=== PATIENT | male | born 1980 | race Caucasian/White ===

== ENCOUNTER 2017-01-28 00:17 | Emergency (ER) | payer MEDICAID ==
[~2017-01-28] VITALS: Ht 180.3 cm; Wt 87.5 kg
[2017-01-28] MEDS ORDERED: ZIPRASIDONE 20 MG INJ IM ONE ×2 (01:15→01:30)
[2017-01-28 02:04] VITALS: BP 135/74
== END 2017-01-28 02:05 | disposition home or self-care (01) ==
LOC: ED 01:09
DX: F15.10 Other stimulant abuse, uncomplicated (principal); F41.9 Anxiety disorder, unspecified
CPT/HCPCS: 96372; 99283; J3486

== ENCOUNTER 2017-02-25 18:20 | Inpatient (IN) | payer MEDICAID ==
[~2017-02-25] VITALS: Ht 180.3 cm; Wt 83.0 kg
[2017-02-25] MEDS ORDERED: HYDROmorphone 2 MG/ML, 1ML ONE (18:44)
[2017-02-25 19:00] LABS: CULTURE INDICATED? YES; MICROSCOPIC INDICATED
[2017-02-25] MEDS ORDERED: HYDROmorphone 1 MG/ML, 1ML IM PRN (19:00)
[2017-02-25 19:32] LABS: MEAN CORPUSCULAR HEMOGLOBIN 32.7 pg (27.5-34.5); MEAN CORPUSCULAR HGB CONC 33.6 g/dL (33.2-36.2); MEAN CORPUSCULAR VOLUME 97.5 fL (81-97); MEAN PLATELET VOLUME 9.8 fL (7.4-10.4); PLATELET COUNT 246 x10^3/uL (130-400); RED BLOOD COUNT 4.51 x10^6/uL (4.38-5.82); RED CELL DISTRIBUTION WIDTH 13.7 % (9.4-14.8)
[2017-02-25 19:41] LABS: ANION GAP 6 mmol/L (5-15); CALCIUM 7.9 mg/dL (8.5-10.1); CHLORIDE 102 mmol/L (98-107); CREATININE 0.65 mg/dL (0.7-1.3)
[2017-02-25] MEDS ORDERED: SULFAMETH./TRIMETHOPRIM DS 800MG/160MG TABLET ONE (19:50)
[2017-02-25] MEDS ORDERED: SULFAMETH./TRIMETHOPRIM DS 800MG/160MG TABLET PO ONE (20:00)
[2017-02-25 20:14] LABS: MD YES
[2017-02-25 20:18] LABS: EOS#(MANUAL) 0.34 x10^3/uL (0.0-0.4); EOS% (MANUAL) 2 % (1-7); LYMPH#(MANUAL) 1.53 x10^3/uL (1-3.4); LYMPHS% (MANUAL) 9 % (22-44); MONOS#(MANUAL) 2.04 x10^3/uL (0.3-2.7); MONOS% (MANUAL) 12 % (2-9); REACTIVE LYMPHS # (MANUAL) 0.85 x10^3/uL (0-0); REACTIVE LYMPHS % (MANUAL) 5 % (0-0); SEG#(MANUAL) 12.24 x10^3/uL (1.8-6.8); SEGS% (MANUAL) 72 % (42-75)
[2017-02-25 20:19] LABS: <PLATELET ESTIMATE> ADEQUATE; <PLT MORPHOLOGY> NORMAL PLT MORPH; <RBC MORPHOLOGY> NORMAL
[2017-02-25 20:24] LABS: AMPHETAMINE SCREEN, URINE Positive (Negative); BARBITURATE SCREEN, URINE Negative (Negative); BENZODIAZEPINE SCREEN, URINE Negative (Negative); CANNABINOID SCREEN, URINE Negative (Negative); COCAINE SCREEN, URINE Negative (Negative); METHADONE SCREEN, URINE Negative (Negative); OPIATE SCREEN, URINE Negative (Negative)
[2017-02-25] MEDS ORDERED: CEFTRIAXONE PMX 1GM/50ML 50 ML IV SCH (20:30)
[2017-02-25] MEDS ORDERED: POLYETHYLENE GLYCOL 17 GM PACKET PO PRN (20:30)
[2017-02-25] MEDS ORDERED: ONDANSETRON 2MG/ML, 2ML IVPush PRN (20:30)
[2017-02-25] MEDS ORDERED: ACETAMINOPHEN 325 MG TABLET PO PRN (20:30)
[2017-02-25] MEDS ORDERED: BISACODYL 10 MG SUPP PR PRN (20:30)
[2017-02-25 21:28] LABS: FOLATE LEVEL 10.5 ng/mL (3.1-17.5)
[2017-02-25 22:09] VITALS: BP 99/50
[2017-02-25] MEDS: DOXYCYCLINE 100MG TABLET PO SCH (22:20)
[2017-02-25] MEDS: BEER 12 OZ CAN PO SCH (22:20)
[2017-02-25] MEDS: SODIUM CHLORIDE 0.9% 1,000 ML IV SCH (22:20)
[2017-02-25] MEDS: CEFTRIAXONE 1,000 MG in SODIUM CHLORIDE 0.9% 50 ML IV SCH (22:20)
[2017-02-25] MEDS: HEPARIN 5,000 UNITS/ML, 1ML SQ SCH (22:20)
[2017-02-26 04:16] VITALS: BP 113/71
[2017-02-26] MEDS: HEPARIN 5,000 UNITS/ML, 1ML SQ SCH ×3 (04:30→19:42)
[2017-02-26 05:33] LABS: MEAN CORPUSCULAR HEMOGLOBIN 32.7 pg (27.5-34.5); MEAN CORPUSCULAR HGB CONC 33.4 g/dL (33.2-36.2); MEAN CORPUSCULAR VOLUME 98.1 fL (81-97); MEAN PLATELET VOLUME 9.9 fL (7.4-10.4); PLATELET COUNT 224 x10^3/uL (130-400); RED BLOOD COUNT 4.38 x10^6/uL (4.38-5.82); RED CELL DISTRIBUTION WIDTH 13.8 % (9.4-14.8)
[2017-02-26 05:42] LABS: ALANINE AMINOTRANSFERASE 42 U/L (12-78); ALBUMIN 2.5 g/dL (3.4-5.0); ANION GAP 6 mmol/L (5-15); CALCIUM 7.4 mg/dL (8.5-10.1); CHLORIDE 106 mmol/L (98-107)
[2017-02-26 05:45] LABS: ALKALINE PHOSPHATASE 77 U/L (45-117); BILIRUBIN,TOTAL 0.3 mg/dL (0.2-1.0); TOTAL PROTEIN 6.4 g/dL (6.4-8.2)
[2017-02-26 06:13] LABS: MD YES
[2017-02-26 06:15] LABS: REACTIVE LYMPHS # (MANUAL) 0.29 x10^3/uL (0-0); REACTIVE LYMPHS % (MANUAL) 2 % (0-0)
[2017-02-26 06:16] LABS: EOS#(MANUAL) 0.14 x10^3/uL (0.0-0.4); EOS% (MANUAL) 1 % (1-7); LYMPH#(MANUAL) 3.58 x10^3/uL (1-3.4); LYMPHS% (MANUAL) 25 % (22-44); MONOS#(MANUAL) 0.72 x10^3/uL (0.3-2.7); MONOS% (MANUAL) 5 % (2-9); SEG#(MANUAL) 9.58 x10^3/uL (1.8-6.8); SEGS% (MANUAL) 67 % (42-75)
[2017-02-26 06:17] LABS: <PLATELET ESTIMATE> ADEQUATE; <PLT MORPHOLOGY> NORMAL PLT MORPH; <RBC MORPHOLOGY> NORMAL
[2017-02-26 08:01] VITALS: BP 117/61
[2017-02-26] MEDS: SENNA/DOCUSATE TABLET PO SCH (09:15)
[2017-02-26] MEDS: DOXYCYCLINE 100MG TABLET PO SCH ×2 (09:15→19:42)
[2017-02-26] MEDS: SODIUM CHLORIDE 0.9% 1,000 ML IV SCH ×2 (09:16→18:40)
[2017-02-26] MEDS: NICOTINE 21 MG/24 HR PATCH.TD24 TD SCH ×2 (09:17→20:27)
[2017-02-26] MEDS: BEER 12 OZ CAN PO SCH ×3 (09:17→19:42)
[2017-02-26 13:31] VITALS: BP 129/65
[2017-02-26 19:19] VITALS: BP 101/51
[2017-02-26] MEDS: KETOROLAC 30 MG/1 ML IVPush PRN (19:42)
[2017-02-26] MEDS: CEFTRIAXONE 1,000 MG in SODIUM CHLORIDE 0.9% 50 ML IV SCH (22:00)
[2017-02-27 03:21] VITALS: BP 119/78
[2017-02-27] MEDS: SODIUM CHLORIDE 0.9% 1,000 ML IV SCH ×2 (05:35→16:44)
[2017-02-27] MEDS: HEPARIN 5,000 UNITS/ML, 1ML SQ SCH ×3 (05:51→22:15)
[2017-02-27] MEDS: BEER 12 OZ CAN PO SCH ×2 (07:39→16:44)
[2017-02-27] MEDS: SENNA/DOCUSATE TABLET PO SCH (07:39)
[2017-02-27] MEDS: DOXYCYCLINE 100MG TABLET PO SCH ×2 (07:39→22:15)
[2017-02-27 08:23] VITALS: BP 120/80
[2017-02-27 13:12] VITALS: BP 119/73
[2017-02-27 19:44] VITALS: BP 125/73
[2017-02-27] MEDS: CEFTRIAXONE 1,000 MG in SODIUM CHLORIDE 0.9% 50 ML IV SCH (22:15)
[2017-02-27] MEDS: KETOROLAC 30 MG/1 ML IVPush PRN (22:26)
[2017-02-28 02:11] VITALS: BP 118/74
[2017-02-28] MEDS: SODIUM CHLORIDE 0.9% 1,000 ML IV SCH (03:00)
[2017-02-28] MEDS: NICOTINE 21 MG/24 HR PATCH.TD24 TD SCH (07:52)
[2017-02-28] MEDS: BEER 12 OZ CAN PO SCH (07:52)
[2017-02-28] MEDS: HEPARIN 5,000 UNITS/ML, 1ML SQ SCH (07:53)
[2017-02-28] MEDS ORDERED: DOXY100T PO (08:01)
[2017-02-28 08:30] VITALS: BP 119/76
[2017-02-28] MEDS: DOXYCYCLINE 100MG TABLET PO SCH (09:22)
[2017-02-28] MEDS: SENNA/DOCUSATE TABLET PO SCH (09:22)
[2017-02-28 09:45] VITALS: BP 116/72
== END 2017-02-28 10:15 | disposition home or self-care (01) | DRG 729 ==
LOC: ED 18:41 → EDIP 19:35 → 4NOR 21:33
PROVIDERS: ADMIT Internal Medicine; ATTEND Internal Medicine
DX: N43.3 Hydrocele, unspecified (principal); E44.0 Moderate protein-calorie malnutrition; N45.1 Epididymitis; D72.829 Elevated white blood cell count, unspecified; D75.89 Other specified diseases of blood and blood-forming organs; F12.90 Cannabis use, unspecified, uncomplicated; F15.90 Other stimulant use, unspecified, uncomplicated; F17.210 Nicotine dependence, cigarettes, uncomplicated; Z86.14 Personal history of Methicillin resistant Staphylococcus aureus infection; Z68.25 Body mass index [BMI] 25.0-25.9, adult
CPT/HCPCS: 36415; 76870; 80048; 80053; 80307; 81001; 82040; 82607; 82746; 83605; 85025; 87086; 87491; 87591; J0696; J1170; J1644; J1885; J7030

== ENCOUNTER 2017-03-02 21:17 | Emergency (ER) | payer MEDICAID ==
[~2017-03-02] VITALS: Ht 180.3 cm; Wt 81.3 kg
[~2017-03-02 21:17] MED LIST: DOXY100T PO
[2017-03-02 21:18] VITALS: BP 120/77
[2017-03-02 22:06] LABS: MICROSCOPIC INDICATED
[2017-03-02 22:08] LABS: CULTURE INDICATED? YES
== END 2017-03-02 23:09 | disposition left against medical advice (07) ==
LOC: ED 22:20
DX: N45.1 Epididymitis (principal); N50.812 Left testicular pain; F17.200 Nicotine dependence, unspecified, uncomplicated
CPT/HCPCS: 81001; 87086; 99284

== ENCOUNTER 2017-04-02 21:43 | Observation (INO) | payer MEDICAID ==
[~2017-04-02] VITALS: Ht 180.3 cm; Wt 81.2 kg
[2017-04-02 22:18] LABS: BASOPHILS % (AUTO) 2 % (0-1); EOSINOPHILS # (AUTO) 0.28 x10^3/uL (0-0.4); EOSINOPHILS % (AUTO) 4 % (1-7); LYMPHOCYTES # (AUTO) 2.69 x10^3/uL (1-3.4); LYMPHOCYTES % (AUTO) 42 % (22-44); MD NO; MEAN CORPUSCULAR HEMOGLOBIN 32.5 pg (27.5-34.5); MEAN CORPUSCULAR HGB CONC 33.6 g/dL (33.2-36.2); MEAN CORPUSCULAR VOLUME 96.6 fL (81-97); MONOCYTES # (AUTO) 0.88 x10^3/uL (0.2-0.8); MONOCYTES % (AUTO) 14 % (2-9); NEUTROPHILS # (AUTO) 2.51 x10^3/uL (1.8-6.8); NEUTROPHILS % (AUTO) 39 % (42-75); PLATELET COUNT 196 x10^3/uL (130-400); RED BLOOD COUNT 4.53 x10^6/uL (4.38-5.82); RED CELL DISTRIBUTION WIDTH 14.3 % (9.4-14.8)
[2017-04-02 22:27] LABS: ALBUMIN 3.8 g/dL (3.4-5.0); ANION GAP 6 mmol/L (5-15); CALCIUM 7.8 mg/dL (8.5-10.1); CHLORIDE 109 mmol/L (98-107)
[2017-04-02 22:30] LABS: ALANINE AMINOTRANSFERASE 95 U/L (12-78); ALKALINE PHOSPHATASE 83 U/L (45-117); BILIRUBIN,TOTAL 0.4 mg/dL (0.2-1.0); CREATININE 0.71 mg/dL (0.7-1.3)
[2017-04-02 22:35] LABS: ACETAMINOPHEN < 2 mcg/mL (10-30)
[2017-04-03 01:48] LABS: AMPHETAMINE SCREEN, URINE Positive (Negative); BARBITURATE SCREEN, URINE Negative (Negative); BENZODIAZEPINE SCREEN, URINE Negative (Negative); CANNABINOID SCREEN, URINE Negative (Negative); COCAINE SCREEN, URINE Negative (Negative); METHADONE SCREEN, URINE Negative (Negative); OPIATE SCREEN, URINE Negative (Negative)
[2017-04-03] MEDS ORDERED: NICOTINE 7 MG/24 HR PATCH.TD24 TD SCH (14:00)
[2017-04-03] MEDS ORDERED: ONDANSETRON ODT 4 MG PO PRN (14:00)
[2017-04-03] MEDS ORDERED: ACETAMINOPHEN 325 MG TABLET PO PRN (14:00)
[2017-04-03] MEDS ORDERED: DOCUSATE 100 MG CAPSULE PO PRN (14:00)
[2017-04-04 00:09] VITALS: BP 114/78
[2017-04-04 08:23] VITALS: BP 101/63
[2017-04-04] MEDS ORDERED: NICOTINE 7 MG/24 HR PATCH.TD24 TD SCH (14:00)
== END 2017-04-04 18:55 ==
LOC: ED 23:18 → EDIP 04-03 06:57 → 2N 04-04 00:08
PROVIDERS: ADMIT Internal Medicine; ATTEND Internal Medicine
DX: R45.851 Suicidal ideations (principal); F33.2 Major depressive disorder, recurrent severe without psychotic features; F15.10 Other stimulant abuse, uncomplicated; F10.20 Alcohol dependence, uncomplicated; F17.200 Nicotine dependence, unspecified, uncomplicated
CPT/HCPCS: 36415; 80053; 80307; 80329; 85025; 99285; G0378; G0480

== ENCOUNTER 2017-06-18 23:44 | Emergency (ER) | payer MEDICAID ==
[~2017-06-18] VITALS: Ht 172.7 cm; Wt 80.9 kg
[2017-06-19 00:38] LABS: BASOPHILS # (AUTO) 0.04 x10^3/uL (0-0.1); BASOPHILS % (AUTO) 1 % (0-1); EOSINOPHILS # (AUTO) 0.29 x10^3/uL (0-0.4); EOSINOPHILS % (AUTO) 4 % (1-7); LYMPHOCYTES # (AUTO) 3.08 x10^3/uL (1-3.4); LYMPHOCYTES % (AUTO) 40 % (22-44); MD NO; MEAN CORPUSCULAR HEMOGLOBIN 33.1 pg (27.5-34.5); MEAN CORPUSCULAR HGB CONC 33.9 g/dL (33.2-36.2); MEAN CORPUSCULAR VOLUME 97.6 fL (81-97); MEAN PLATELET VOLUME 9.6 fL (7.4-10.4); MONOCYTES # (AUTO) 0.69 x10^3/uL (0.2-0.8); MONOCYTES % (AUTO) 9 % (2-9); NEUTROPHILS # (AUTO) 3.62 x10^3/uL (1.8-6.8); NEUTROPHILS % (AUTO) 47 % (42-75); PLATELET COUNT 208 x10^3/uL (130-400); RED BLOOD COUNT 4.17 x10^6/uL (4.38-5.82); RED CELL DISTRIBUTION WIDTH 13.9 % (9.4-14.8)
[2017-06-19 00:49] LABS: AMPHETAMINE SCREEN, URINE Positive (Negative); BARBITURATE SCREEN, URINE Negative (Negative); BENZODIAZEPINE SCREEN, URINE Negative (Negative); CANNABINOID SCREEN, URINE Negative (Negative); COCAINE SCREEN, URINE Negative (Negative); METHADONE SCREEN, URINE Negative (Negative); OPIATE SCREEN, URINE Negative (Negative)
[2017-06-19 00:51] LABS: ALANINE AMINOTRANSFERASE 75 U/L (12-78); ALBUMIN 3.2 g/dL (3.4-5.0); ANION GAP 8 mmol/L (5-15); CALCIUM 7.9 mg/dL (8.5-10.1); CHLORIDE 113 mmol/L (98-107)
[2017-06-19 00:53] LABS: ACETAMINOPHEN < 2 mcg/mL (10-30); ALKALINE PHOSPHATASE 69 U/L (45-117); BILIRUBIN,TOTAL 0.4 mg/dL (0.2-1.0); SALICYLATE LEVEL < 1.7 mg/dL (2.8-20.0); TOTAL PROTEIN 6.9 g/dL (6.4-8.2)
[2017-06-19] MEDS ORDERED: NYSTATIN TOPICAL POWDER 15GM TP PRN (02:30)
[2017-06-19] MEDS ORDERED: ACETAMINOPHEN 325 MG TABLET PO PRN (05:30)
[2017-06-19] MEDS ORDERED: POTASSIUM CHLORIDE 20 MEQ TAB.ER.PRT PO SCH (08:00)
[2017-06-19] MEDS ORDERED: POTASSIUM CHLORIDE 20 MEQ TAB.ER.PRT ONE (08:20)
[2017-06-19] MEDS ORDERED: NYSTATIN TOPICAL POWDER 15GM TP SCH (09:00)
[2017-06-19 15:47] VITALS: BP 120/78
== END 2017-06-19 15:50 | disposition home or self-care (01) ==
LOC: ED 23:59 → UNDOADMOB 06-19 01:44 → EDIP 06-19 01:44 → ED 06-19 15:50
DX: R45.851 Suicidal ideations (principal); F15.10 Other stimulant abuse, uncomplicated; Z72.89 Other problems related to lifestyle; Z60.9 Problem related to social environment, unspecified; Z91.14 Patient's other noncompliance with medication regimen
CPT/HCPCS: 36415; 80053; 80307; 80329; 85025; 99284; G0480

== ENCOUNTER 2017-07-11 17:55 | Emergency (ER) | payer MEDICAID ==
[~2017-07-11] VITALS: Ht 180.3 cm; Wt 87.0 kg
[2017-07-11 18:49] LABS: BASOPHILS # (AUTO) 0.07 x10^3/uL (0-0.1); BASOPHILS % (AUTO) 1 % (0-1); EOSINOPHILS # (AUTO) 0.24 x10^3/uL (0-0.4); EOSINOPHILS % (AUTO) 3 % (1-7); LYMPHOCYTES # (AUTO) 2.63 x10^3/uL (1-3.4); LYMPHOCYTES % (AUTO) 34 % (22-44); MD NO; MEAN CORPUSCULAR HEMOGLOBIN 33.1 pg (27.5-34.5); MEAN CORPUSCULAR HGB CONC 33.6 g/dL (33.2-36.2); MEAN CORPUSCULAR VOLUME 98.7 fL (81-97); MEAN PLATELET VOLUME 9.4 fL (7.4-10.4); MONOCYTES # (AUTO) 0.47 x10^3/uL (0.2-0.8); MONOCYTES % (AUTO) 6 % (2-9); NEUTROPHILS # (AUTO) 4.26 x10^3/uL (1.8-6.8); NEUTROPHILS % (AUTO) 56 % (42-75); PLATELET COUNT 212 x10^3/uL (130-400); RED BLOOD COUNT 4.07 x10^6/uL (4.38-5.82); RED CELL DISTRIBUTION WIDTH 14.1 % (9.4-14.8)
[2017-07-11 18:57] LABS: ALANINE AMINOTRANSFERASE 53 U/L (12-78); ALBUMIN 3.2 g/dL (3.4-5.0); ANION GAP 8 mmol/L (5-15); CALCIUM 7.3 mg/dL (8.5-10.1); CHLORIDE 114 mmol/L (98-107); CREATININE 0.73 mg/dL (0.7-1.3); SALICYLATE LEVEL 1.8 mg/dL (2.8-20.0)
[2017-07-11 19:00] LABS: ALKALINE PHOSPHATASE 66 U/L (45-117); BILIRUBIN,TOTAL 0.2 mg/dL (0.2-1.0)
[2017-07-11 19:01] LABS: ACETAMINOPHEN < 2 mcg/mL (10-30)
[2017-07-11 19:30] LABS: AMPHETAMINE SCREEN, URINE Positive (Negative); BARBITURATE SCREEN, URINE Negative (Negative); BENZODIAZEPINE SCREEN, URINE Negative (Negative); CANNABINOID SCREEN, URINE Negative (Negative); COCAINE SCREEN, URINE Negative (Negative); METHADONE SCREEN, URINE Negative (Negative); OPIATE SCREEN, URINE Negative (Negative)
[2017-07-11 22:55] VITALS: BP 130/75
== END 2017-07-12 04:33 | disposition home or self-care (01) ==
LOC: ED 18:35
DX: R45.851 Suicidal ideations (principal); Z79.899 Other long term (current) drug therapy
CPT/HCPCS: 36415; 80053; 80307; 80329; 85025; 99284; G0480

== ENCOUNTER 2018-07-16 20:51 | Emergency (ER) | payer MEDICAID ==
[~2018-07-16] VITALS: Ht 180.3 cm; Wt 104.9 kg
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
[2018-07-16] MEDS ORDERED: THIAMINE 100MG TABLET ONE (21:28)
[2018-07-16] MEDS ORDERED: THIAMINE 100MG TABLET PO ONE (21:30)
[2018-07-16] MEDS ORDERED: LORazepam 1MG TABLET PO ONE (21:30)
[2018-07-16] MEDS ORDERED: LORazepam 1MG TABLET ONE (21:30)
[2018-07-16 21:47] LABS: BASOPHILS # (AUTO) 0.14 x10^3/uL (0-0.1); BASOPHILS % (AUTO) 2 % (0-1); EOSINOPHILS # (AUTO) 0.21 x10^3/uL (0-0.4); EOSINOPHILS % (AUTO) 3 % (1-7); LYMPHOCYTES # (AUTO) 2.23 x10^3/uL (1-3.4); LYMPHOCYTES % (AUTO) 26 % (22-44); MD NO; MEAN CORPUSCULAR HEMOGLOBIN 32.9 pg (27.5-34.5); MEAN CORPUSCULAR HGB CONC 32.4 g/dL (33.2-36.2); MEAN CORPUSCULAR VOLUME 101.7 fL (81-97); MEAN PLATELET VOLUME 11.5 fL (7.4-10.4); MONOCYTES # (AUTO) 1.14 x10^3/uL (0.2-0.8); MONOCYTES % (AUTO) 14 % (2-9); NEUTROPHILS # (AUTO) 4.74 x10^3/uL (1.8-6.8); NEUTROPHILS % (AUTO) 56 % (42-75); PLATELET COUNT 157 x10^3/uL (130-400); RED BLOOD COUNT 4.96 x10^6/uL (4.38-5.82); RED CELL DISTRIBUTION WIDTH 14.6 % (9.4-14.8)
[2018-07-16 22:00] LABS: ALBUMIN 3.8 g/dL (3.4-5.0); ANION GAP 11 mmol/L (5-15); CALCIUM 8.3 mg/dL (8.5-10.1); CHLORIDE 107 mmol/L (98-107); SALICYLATE LEVEL 1.9 mg/dL (2.8-20.0)
[2018-07-16 22:03] LABS: ALANINE AMINOTRANSFERASE 109 U/L (12-78); ALKALINE PHOSPHATASE 75 U/L (45-117); BILIRUBIN,TOTAL 1.1 mg/dL (0.2-1.0); CREATININE 1.06 mg/dL (0.7-1.3); TOTAL PROTEIN 8.1 g/dL (6.4-8.2)
--- NOTE | 2018-07-16 23:48 | NUR ---
BRIANNA RN: TELEPSYCH INITIATED; BOT PLACED IN ROOM
[2018-07-17 00:29] LABS: AMPHETAMINE SCREEN, URINE Positive (Negative); BARBITURATE SCREEN, URINE Negative (Negative); BENZODIAZEPINE SCREEN, URINE Positive (Negative); CANNABINOID SCREEN, URINE Negative (Negative); COCAINE SCREEN, URINE Negative (Negative); METHADONE SCREEN, URINE Negative (Negative); OPIATE SCREEN, URINE Negative (Negative)
--- NOTE | 2018-07-17 00:37 | NUR ---
PT RESTING QUIETLY, NAD. SITTER IN VIEW OF PT, ROOM REMAINS SECURE.
--- NOTE | 2018-07-17 02:10 | NUR ---
PT SLEEPING, RESP=UNLABORED. SITTER IN VIEW OF PT.
--- NOTE | 2018-07-17 02:33 | NUR ---
TELEPSYCH ON LINE WITH PT NOW.
--- NOTE | 2018-07-17 03:07 | NUR ---
SOC RECOMMENDS HOSPITALIZATION, WILL FAX RECOMMENDATION OVER. VS UPDATED.
--- NOTE | 2018-07-17 04:18 | NUR ---
ASSUMING CARE OF PT AT THIS TIME. PT IS RESTING IN [facility]. SITTER OUTSIDE OF ROOM FOR DIRECT OBSERVATION OF PT.
[2018-07-17] MEDS ORDERED: ONDANSETRON ODT 4 MG PO PRN (05:00)
[2018-07-17] MEDS ORDERED: DOCUSATE 100 MG CAPSULE PO PRN (05:00)
[2018-07-17] MEDS ORDERED: LORazepam 0.5MG TABLET PO PRN (05:00)
[2018-07-17] MEDS ORDERED: LORazepam 1MG TABLET PO PRN ×4 (05:00)
--- NOTE | 2018-07-17 05:15 | NUR ---
packet faxed to all facilities. pt declined from 2n as he has hx of mrsa stated from chart 17 years ago
--- NOTE | 2018-07-17 05:35 | NUR ---
PT ASLEEP IN [facility] AT THIS TIME; VIJAY. PT HAS SITTER OUTSIDE OF ROOM FOR DIRECT OBSERVATION OF PT.
[2018-07-17 05:55] LABS: FREE T4 (FREE THYROXINE) 1.29 ng/dL (0.76-1.46); THYROID STIMULATING HORMONE 2.27 mIU/L (0.358-3.740)
--- NOTE | 2018-07-17 06:17 | NUR ---
PT VSS AND UPDATED IN EMR. CIWA ASSESSMENT PERFORMED WITH PT AWAKE.
--- NOTE | 2018-07-17 07:03 | NUR ---
RECIEVED REPORT FROM ASHUTOSH RN. ASSUMED CARE OF PT
--- NOTE | 2018-07-17 07:37 | NUR ---
REPORT FROM KELBY BURNHAM. PT RESTING ON GURNEY. SITTER IN PLACE WITH EYES ON PT. RESP EVEN AND UNLABORED. ROOM SECURED.
--- NOTE | 2018-07-17 08:16 | NUR ---
PT PROVIDED WITH ED SECURITY DIET TRAY. PT IN NAD AT THIS TIME. SITTER IN PLACE WITH EYES ON PT.
--- NOTE | 2018-07-17 09:12 | NUR ---
PT RESTING ON GURJERE. VIJAY. SITTER IN PLACE. RESP EVEN AND UNLABORED.
--- NOTE | 2018-07-17 10:13 | NUR ---
PT RESTING IN BED. NO COMPLAINTS AT THIS TIME, SITTER IN VIEW OF PT.
--- NOTE | 2018-07-17 10:29 | NUR ---
PT RESTING ON GURNEY. RESP EVEN AND UNLABORED. NADN. SITTER IN PLACE.
[2018-07-17] MEDS ORDERED: QUETIAPINE 25MG TABLET ONE ×2 (10:35→22:12)
[2018-07-17] MEDS: QUETIAPINE 25MG TABLET PO SCH ×2 (11:10→22:14)
[2018-07-17] MEDS: MULTIVITAMINS/MINERALS TABLET PO SCH (11:10)
--- NOTE | 2018-07-17 11:23 | NUR ---
PT MEDICATED PER MAR, PT DENIES NEEDS AT THIS TIME. PT IN VIEW OF SITTER
--- NOTE | 2018-07-17 13:26 | NUR ---
PT TRANSFERED TO HOSPITAL BED FOR COMFORT. SUICIDE PRECAUTIONS REMAIN IN PLACE, WILL CTM, NO NEEDS AT THIS TIME
--- NOTE | 2018-07-17 14:30 | NUR ---
BREAK RN - PT RESTING ON GURJERE. RESP EVEN AND UNLABORED. SITTER IN PLACE.
--- NOTE | 2018-07-17 16:16 | NUR ---
PT RESTING IN BED, PROVIDED WITH WATER. NO C/O PAIN, NO OTHER NEEDS, SUICIDE PRECAUTIONS REMAIN IN PLACE
--- NOTE | 2018-07-17 18:03 | NUR ---
PT GIVEN FOOD TRAY, NAD, VSS, NO NEEDS AT THIS TIME
--- NOTE | 2018-07-17 19:02 | NUR ---
Pt report from Sharron white. This rn to assume care of pt. Sleeping comfortably on hospital bed. Nadn. Awaiting potential acceptance from psych facility.
--- NOTE | 2018-07-17 20:35 | NUR ---
Sleeping comfortably on hospital bed. Nadn. Awaiting potential acceptance from psych facility.
--- NOTE | 2018-07-17 21:40 | NUR ---
Given crackers and water per request. No other immediate needs.
--- NOTE | 2018-07-17 22:20 | NUR ---
Pt medicated per apr. Given water per request. No other immediate needs.
--- NOTE | 2018-07-17 23:01 | NUR ---
Sleeping comfortably on hospital bed.
--- NOTE | 2018-07-18 00:24 | NUR ---
LUNCH RN: PT RESTING IN ROOM. NO ACUTE DISTRES NOTED. SITTER AT DOOR. WILL CONTINUE TO MONITOR WHILE PRIMARY RN IS ON BREAK.
--- NOTE | 2018-07-18 01:01 | NUR ---
Sleeping comfortably on hospital bed.
--- NOTE | 2018-07-18 02:23 | NUR ---
Sleeping comfortably on hospital bed.
--- NOTE | 2018-07-18 03:10 | NUR ---
Sleeping comfortably on hospital bed.
--- NOTE | 2018-07-18 04:10 | NUR ---
Sleeping comfortably on hospital bed.
--- NOTE | 2018-07-18 05:25 | NUR ---
Sleeping comfortably on hospital bed.
--- NOTE | 2018-07-18 07:00 | NUR ---
REPORT RECEIVED, CARE ASSUMED.
--- NOTE | 2018-07-18 07:10 | NUR ---
PT IN SECURE ROOM WITH SITTER FOR OBSERVATION. PT SLEEPING AT THIS TIME.
--- NOTE | 2018-07-18 07:49 | NUR ---
MEDICATION REQUESTED FROM PHARMACY
--- NOTE | 2018-07-18 08:30 | NUR ---
PT SLEEPING IN SECURE ROOM. PT AROUSES EASILY. PT PROVIDED WITH PO FLUIDS AND BREAKFAST. NO OTHER NEEDS EXPRESSED AT THIS TIME.
[2018-07-18] MEDS ORDERED: QUETIAPINE 25MG TABLET ONE ×2 (09:32→19:47)
[2018-07-18] MEDS: MULTIVITAMINS/MINERALS TABLET PO SCH (09:33)
[2018-07-18] MEDS: QUETIAPINE 25MG TABLET PO SCH ×2 (09:34→21:21)
--- NOTE | 2018-07-18 09:35 | NUR ---
PT CONT SLEEPING INTERMITTENTLY, AROUSES EASILY. PT GIVEN AM MEDS ORDERED. PT COOPERATIVE WITH CARE. PO FLUIDS AT BEDSIDE. NO OTHER NEEDS EXPRESSED AT THIS TIME. PT CONT IN SECURE ROOM WITH Q 15 MIN CHECKS.
--- NOTE | 2018-07-18 10:02 | NUR ---
REPORT TO GENEVIEVE LAMA
--- NOTE | 2018-07-18 11:43 | NUR ---
pt in room at this time. room secure and sitter in hallway. lunch ordered and awaiting arrival.
--- NOTE | 2018-07-18 14:43 | NUR ---
PT RESTING IN ROOM. ROOM SECURE AND SITTER IN [place].
--- NOTE | 2018-07-18 19:40 | NUR ---
report from DILSHAD LAMA. PT RESTING CALMLY IN BED. SITTER ON FREQUENT WATCH. WILL CONTINUE TO MONITOR.
--- NOTE | 2018-07-18 20:03 | NUR ---
PT CONTINUES TO REST CALMLY IN BED WITH EYES CLOSED. NO STATED NEEDS AT THIS TIME. WILL CONTINUE TO MONITOR.
--- NOTE | 2018-07-18 21:25 | NUR ---
PT UP TO BR TO VOID. PT GAIT STEADY. PT MEDICATED WITH SCHEDULED MEDS. PT REQUESTING NICOTEIN PATCH. PT ROOM CLEARED OF DINNER DEBRIE.
[2018-07-18] MEDS ORDERED: NICOTINE 14MG/24 HR PATCH.TD24 TD SCH (22:00)
[2018-07-18] MEDS ORDERED: NICOTINE 14MG/24 HR PATCH.TD24 ONE (22:02)
--- NOTE | 2018-07-18 22:22 | NUR ---
PT GIVEN ORDERED NICOTINE PATCH. PT RESTING CALMLY IN BED AT THIS TIME. SITTER ON FREQUENT WATCH OF PT.
--- NOTE | 2018-07-18 23:40 | NUR ---
PT RESTING CALMLY IN BED WITH EYES CLOSED. NO STATED NEEDS AT THIS TIME.
--- NOTE | 2018-07-19 00:09 | NUR ---
PT RESTING CALMLY IN BED. NO STATED NEEDS, RESP EVEN AND NON LABORED. WILL CONTINUE TO MONITOR. SITTER ON FREQUENT WATCH.
--- NOTE | 2018-07-19 01:36 | NUR ---
PT RESTING CALMLY IN BED. NO STATED NEEDS, RESP EVEN AND NON LABORED. WILL CONTINUE TO MONITOR. SITTER ON FREQUENT WATCH.
--- NOTE | 2018-07-19 02:34 | NUR ---
PT RESTING CALMLY IN BED. NO STATED NEEDS, RESP EVEN AND NON LABORED. WILL CONTINUE TO MONITOR. SITTER ON FREQUENT WATCH.
--- NOTE | 2018-07-19 03:01 | NUR ---
PT RESTING CALMLY IN BED. NO STATED NEEDS, RESP EVEN AND NON LABORED. WILL CONTINUE TO MONITOR. SITTER ON FREQUENT WATCH.
--- NOTE | 2018-07-19 04:46 | NUR ---
PT RESTING CALMLY IN BED WITH EYES CLOSED. NO STATED NEEDS AT THIS TIME. SITTER ON FREQUENT WATCH OF PT. WILL CONTINUE TO MONITOR.
--- NOTE | 2018-07-19 05:12 | NUR ---
PT RESTING IN BED WITH EYES CLOSED. WILL CONTINUE TO MONITOR. SITTER AT DOOR FOR OBS.
--- NOTE | 2018-07-19 06:44 | NUR ---
PT RESTING IN BED WITH EYES CLOSED. WILL CONTINUE TO MONITOR. SITTER AT DOOR FOR OBS.
--- NOTE | 2018-07-19 07:52 | NUR ---
PT RESTING IN [facility], NAD, SITTER MONITORING FROM [facility] FOR SAFETY
[2018-07-19] MEDS ORDERED: QUETIAPINE 25MG TABLET ONE (08:34)
[2018-07-19] MEDS: QUETIAPINE 25MG TABLET PO SCH (08:37)
[2018-07-19 08:38] VITALS: BP 122/82
--- NOTE | 2018-07-19 08:47 | NUR ---
PT PROVIDED WITH MEAL TRAY, PT UP TO BATHROOM AND TOLERATES AMBULATION WELL. PT MEDICATED PER MAR. PT DENIES FURTHER NEEDS AT THIS TIME. SITTER MONITORING FROM [facility] FOR SAFETY
[2018-07-19] MEDS: MULTIVITAMINS/MINERALS TABLET PO SCH (10:09)
--- NOTE | 2018-07-19 10:12 | NUR ---
PT ATE APPROX 100% OF BREAKFAST, PROVIDED WITH REJI CRACKER AND WATER PER REQUEST. PT DENIES FURTHER NEEDS AT THIS TIME
--- NOTE | 2018-07-19 12:44 | NUR ---
pt provided with meal tray. denies further needs at this time
--- NOTE | 2018-07-19 16:39 | NUR ---
DR GAN TO BEDSIDE TO ASSESS AND DICUSS DC. AWAITING DC PAPERWORK AT THIS TIME
== END 2018-07-19 17:33 | disposition home or self-care (01) ==
LOC: ED 23:13 → EDIP 07-17 03:44 → UNDOADMIN 07-17 03:44 → ED 07-19 17:33
DX: F32.9 Major depressive disorder, single episode, unspecified (principal); R45.851 Suicidal ideations
CPT/HCPCS: 36415; 80053; 80307; 82306; 82607; 83735; 84439; 84443; 85025; 99284; 99285

== ENCOUNTER 2018-07-19 22:09 | Emergency (ER) | payer MEDICAID | END 2018-07-19 23:14 | LOC: ED 22:11 | DX: R45.851 Suicidal ideations (principal); Z53.21 Procedure and treatment not carried out due to patient leaving prior to being seen by health care provider ==

== ENCOUNTER 2018-08-20 03:43 | Emergency (ER) | payer MEDICAID ==
[~2018-08-20] VITALS: Ht 180.3 cm; Wt 102.1 kg
[2018-08-20 03:47] VITALS: BP 107/74
[2018-08-20] MEDS ORDERED: ACETAMINOPHEN 500 MG TABLET ONE (03:59)
[2018-08-20] MEDS ORDERED: ACETAMINOPHEN 500 MG TABLET PO ONE (04:00)
[2018-08-20] MEDS ORDERED: IBUPROFEN 600 MG TABLET ONE (04:00)
[2018-08-20] MEDS ORDERED: IBUPROFEN 600 MG TABLET PO ONE (04:00)
== END 2018-08-20 04:57 | disposition home or self-care (01) ==
LOC: ED 03:48
DX: M79.672 Pain in left foot (principal); F32.9 Major depressive disorder, single episode, unspecified; F17.200 Nicotine dependence, unspecified, uncomplicated; Z72.89 Other problems related to lifestyle
CPT/HCPCS: 99283

== ENCOUNTER 2018-08-20 20:09 | Emergency (ER) | payer MEDICAID ==
[~2018-08-20] VITALS: Ht 180.3 cm; Wt 101.8 kg
--- NOTE | 2018-08-20 21:19 | NUR ---
PATIENT MOVED INTO ROOM AND INSTRUCTED TO UNDRESS. ASSUMED PT CARE AT THIS TIME.
--- NOTE | 2018-08-20 21:20 | NUR ---
PT. WAS ON WALL IN ED FOR CLOSE OBS UNTIL ROOM WAS AVAILABLE. PT. MOVED INTO ED ROOM 2. ROOM IS SECURED. SITTER IN [place]. PT. AWARE OF NEED FOR UA. ALL BELONGINGS REMOVED AND SECURED IN LOCKER.
--- NOTE | 2018-08-20 21:23 | NUR ---
ERROR IN CLINICAL SCREEN DONE IN TRIAGE. CLINICAL SCREEN EDITTED
--- NOTE | 2018-08-20 21:35 | NUR ---
PATIENT ARRIVES TO THE ED TODAY C/O SUICIDAL IDEATION W/ INTENT TO OD ON HEROIN. STATES HE DRINKS ETOH DAILY, LAST AT 1500 TODAY. REPORTS RECENT HEROIN AND METH USE. DENIES OFFICIAL DIAGNOSES FOR PSYCHIATRIC DISORDERS, NO NORMAL MEDICAITONS. PT STATES HE "SELF MEDICATES." PT REPORTS NEW STRESSORS OF HOMELESSNESS, STATES "NO ONE LOVES ME" AND IS TEARFUL DURING ASSESSMENT. REPORTS ONE PREVIOUS ATTEMPT AT SI WITH PILLS.
[2018-08-20 21:47] LABS: AMPHETAMINE SCREEN, URINE Positive (Negative); BARBITURATE SCREEN, URINE Negative (Negative); BENZODIAZEPINE SCREEN, URINE Negative (Negative); CANNABINOID SCREEN, URINE Negative (Negative); COCAINE SCREEN, URINE Negative (Negative); OPIATE SCREEN, URINE Negative (Negative)
[2018-08-20 21:48] LABS: METHADONE SCREEN, URINE Negative (Negative)
[2018-08-20 22:07] LABS: ALANINE AMINOTRANSFERASE 115 U/L (12-78); ALBUMIN 3.5 g/dL (3.4-5.0); ANION GAP 9 mmol/L (5-15); CALCIUM 8.3 mg/dL (8.5-10.1); CHLORIDE 104 mmol/L (98-107); CREATININE 0.98 mg/dL (0.7-1.3)
[2018-08-20 22:09] LABS: ALKALINE PHOSPHATASE 76 U/L (45-117); BILIRUBIN,TOTAL 0.8 mg/dL (0.2-1.0); TOTAL PROTEIN 7.6 g/dL (6.4-8.2)
[2018-08-20 22:13] LABS: SALICYLATE LEVEL < 1.7 mg/dL (2.8-20.0)
[2018-08-20 22:18] LABS: MD YES; MEAN CORPUSCULAR HEMOGLOBIN 32.9 pg (27.5-34.5); MEAN CORPUSCULAR HGB CONC 33.2 g/dL (33.2-36.2); MEAN CORPUSCULAR VOLUME 99.2 fL (81-97); MEAN PLATELET VOLUME 10.8 fL (7.4-10.4); PLATELET COUNT 212 x10^3/uL (130-400); RED CELL DISTRIBUTION WIDTH 13.6 % (9.4-14.8)
[2018-08-20 22:22] LABS: <PLATELET ESTIMATE> ADEQUATE; ANISOCYTOSIS 1+; EOS#(MANUAL) 0.47 x10^3/uL (0.0-0.4); EOS% (MANUAL) 6 % (1-7); LYMPHS% (MANUAL) 24 % (22-44); MONOS#(MANUAL) 0.32 x10^3/uL (0.3-2.7); MONOS% (MANUAL) 4 % (2-9); SEG#(MANUAL) 5.21 x10^3/uL (1.8-6.8); SEGS% (MANUAL) 66 % (42-75)
[2018-08-20 22:23] LABS: LARGE PLATELETS 1+
--- NOTE | 2018-08-20 22:47 | NUR ---
TP RN- TELEPSYCH CONSULT INITIATED
--- NOTE | 2018-08-20 22:48 | NUR ---
BREATHALYZER DONE AND CHARTED. PT. TO HAVE TELEPSYCH EVAL AFTER FULL REGISTRATION COMPLETED. PT. REMAINS IN SECURED ROOM. SITTER IN [place]ILLAFA[place]. DENIES NEEDS.
--- NOTE | 2018-08-21 00:55 | NUR ---
GAVE REPORT TO TELEPSYCH MD AND MACHINE PLACED IN ROOM. PT AWAKE AND ADVISED ON POC.
[2018-08-21 01:20] VITALS: BP 100/62
--- NOTE | 2018-08-21 01:21 | NUR ---
PATIENT IS TEARFUL ON ASSESSMENT. STATES THE TELEPSYCH DOCTOR TOLD HIM HE WILL BE GOING HOME AND HE ISN'T HAPPY ABOUT THAT. VSS. DENIES NEEDS AT THIS TIME
--- NOTE | 2018-08-21 02:16 | NUR ---
PT RESTING IN BED W/ EVEN RESPIRATIONS Addendum: 08/21/18 at 0224 by ELIUD SIDE RAILS UP X 2 FOR SAFETY. SITTER REMAINS IN LINE OF SIGHT.
== END 2018-08-21 03:19 | disposition home or self-care (01) ==
LOC: ED 23:03
DX: F15.129 Other stimulant abuse with intoxication, unspecified (principal); F10.129 Alcohol abuse with intoxication, unspecified; F32.9 Major depressive disorder, single episode, unspecified; F17.200 Nicotine dependence, unspecified, uncomplicated; Z72.9 Problem related to lifestyle, unspecified; Y90.9 Presence of alcohol in blood, level not specified; Y92.89 Other specified places as the place of occurrence of the external cause
CPT/HCPCS: 36415; 80053; 80307; 85025; 93005; 99284

== ENCOUNTER 2018-08-21 17:47 | Inpatient (IN) | payer MEDICAID ==
[~2018-08-21] VITALS: Ht 180.3 cm; Wt 108.2 kg
[2018-08-21] MEDS ORDERED: DOCUSATE 100 MG CAPSULE PO PRN (18:30)
[2018-08-21] MEDS ORDERED: POLYETHYLENE GLYCOL 17 GM PACKET PO PRN (18:30)
[2018-08-21] MEDS ORDERED: BISACODYL 10 MG SUPP PR PRN (18:30)
[2018-08-21] MEDS ORDERED: ONDANSETRON ODT 4 MG PO PRN (18:30)
[2018-08-21] MEDS ORDERED: ACETAMINOPHEN 325 MG TABLET PO PRN (18:30)
[2018-08-21 21:23] VITALS: BP 120/87
[2018-08-21] MEDS ORDERED: PLEASE ENTER HEIGHT AND WEIGHT MC SCH (21:30)
[2018-08-21 21:45] VITALS: BP 120/87
[2018-08-21] MEDS: LORazepam 1MG TABLET PO PRN (21:51)
[2018-08-21] MEDS: DIVALPROEX 500 MG TABLET.DR PO SCH (21:51)
[2018-08-22 06:58] LABS: BASOPHILS # (AUTO) 0.04 x10^3/uL (0-0.1); BASOPHILS % (AUTO) 1 % (0-1); EOSINOPHILS # (AUTO) 0.32 x10^3/uL (0-0.4); EOSINOPHILS % (AUTO) 5 % (1-7); LYMPHOCYTES # (AUTO) 2.12 x10^3/uL (1-3.4); LYMPHOCYTES % (AUTO) 32 % (22-44); MD NO; MEAN CORPUSCULAR HEMOGLOBIN 33.5 pg (27.5-34.5); MEAN CORPUSCULAR HGB CONC 33.2 g/dL (33.2-36.2); MEAN CORPUSCULAR VOLUME 100.9 fL (81-97); MEAN PLATELET VOLUME 11.7 fL (7.4-10.4); MONOCYTES # (AUTO) 0.76 x10^3/uL (0.2-0.8); MONOCYTES % (AUTO) 11 % (2-9); NEUTROPHILS # (AUTO) 3.43 x10^3/uL (1.8-6.8); NEUTROPHILS % (AUTO) 51 % (42-75); PLATELET COUNT 175 x10^3/uL (130-400); RED BLOOD COUNT 4.69 x10^6/uL (4.38-5.82); RED CELL DISTRIBUTION WIDTH 13.7 % (9.4-14.8)
[2018-08-22 07:04] LABS: HCT (SEDRATE) 47.4 % (39.2-51.8)
[2018-08-22 07:07] LABS: ANION GAP 6 mmol/L (5-15); CHLORIDE 109 mmol/L (98-107); CHOLESTEROL, TOTAL 139 mg/dL (140-239)
[2018-08-22 07:18] VITALS: BP 109/68
[2018-08-22 07:33] LABS: HDL CHOL % 33 % (26-37); HDL CHOLESTEROL (DIRECT) 46 mg/dL (40-60); LDL CHOLESTEROL,CALCULATED 75 mg/dL (54-169); LDL/HDL RATIO 1.6 (0.5-3.0); TRIGLYCERIDES 92 mg/dL (50-200); VLDL CHOLESTEROL 18 mg/dL (0-25)
[2018-08-22] MEDS: DIVALPROEX 500 MG TABLET.DR PO SCH ×2 (09:29→20:29)
[2018-08-22] MEDS: NICOTINE 21 MG/24 HR PATCH.TD24 TD SCH (09:29)
[2018-08-22] MEDS: LACTULOSE 10 GM/15 ML UDC PO SCH ×2 (12:18→20:29)
[2018-08-22 17:19] LABS: MICROSCOPIC NOT IND
[2018-08-22 17:23] LABS: CULTURE INDICATED? NO
[2018-08-22 19:39] VITALS: BP 129/70
[2018-08-23 07:09] VITALS: BP 114/74
[2018-08-23] MEDS: DIVALPROEX 500 MG TABLET.DR PO SCH ×2 (09:16→20:08)
[2018-08-23] MEDS: NICOTINE 21 MG/24 HR PATCH.TD24 TD SCH (09:16)
[2018-08-23] MEDS: LACTULOSE 10 GM/15 ML UDC PO SCH ×2 (09:21→20:08)
[2018-08-23 19:31] VITALS: BP 123/81
[2018-08-23] MEDS: QUETIAPINE 100MG TABLET PO SCH (20:08)
[2018-08-24 07:21] VITALS: BP 120/75
[2018-08-24] MEDS: LACTULOSE 10 GM/15 ML UDC PO SCH (08:37)
[2018-08-24] MEDS: DIVALPROEX 500 MG TABLET.DR PO SCH ×2 (08:37→20:30)
[2018-08-24] MEDS: NICOTINE 21 MG/24 HR PATCH.TD24 TD SCH (08:37)
[2018-08-24 19:41] VITALS: BP 131/84
[2018-08-24] MEDS: LACTULOSE 20 GM/30 ML UDC PO SCH (20:30)
[2018-08-24] MEDS: QUETIAPINE 100MG TABLET PO SCH (20:30)
[2018-08-25 07:18] VITALS: BP 125/83
[2018-08-25] MEDS: LACTULOSE 20 GM/30 ML UDC PO SCH ×2 (08:34→20:46)
[2018-08-25] MEDS: NICOTINE 21 MG/24 HR PATCH.TD24 TD SCH (08:34)
[2018-08-25] MEDS: DIVALPROEX 500 MG TABLET.DR PO SCH ×2 (08:34→20:46)
[2018-08-25 19:31] VITALS: BP 113/74
[2018-08-25] MEDS: QUETIAPINE 100MG TABLET PO SCH (20:46)
[2018-08-26 07:26] VITALS: BP 116/79
[2018-08-26] MEDS: DIVALPROEX 500 MG TABLET.DR PO SCH ×2 (08:51→20:34)
[2018-08-26] MEDS: LACTULOSE 20 GM/30 ML UDC PO SCH ×2 (08:51→20:34)
[2018-08-26] MEDS: NICOTINE 21 MG/24 HR PATCH.TD24 TD SCH (08:52)
[2018-08-26 19:46] VITALS: BP 110/73
[2018-08-26] MEDS: QUETIAPINE 100MG TABLET PO SCH (20:34)
[2018-08-27 07:30] VITALS: BP 101/70
[2018-08-27] MEDS: DIVALPROEX 500 MG TABLET.DR PO SCH ×2 (08:13→21:04)
[2018-08-27] MEDS: LACTULOSE 20 GM/30 ML UDC PO SCH ×2 (08:13→21:00)
[2018-08-27] MEDS: NICOTINE 21 MG/24 HR PATCH.TD24 TD SCH (08:13)
[2018-08-27 19:47] VITALS: BP 113/71
[2018-08-27] MEDS: QUETIAPINE 100MG TABLET PO SCH (21:04)
[2018-08-28 07:51] VITALS: BP 104/72
[2018-08-28] MEDS: DIVALPROEX 500 MG TABLET.DR PO SCH ×2 (08:08→20:34)
[2018-08-28] MEDS: NICOTINE 21 MG/24 HR PATCH.TD24 TD SCH (08:08)
[2018-08-28] MEDS: BUPROPION SR 150 MG TABLET PO SCH (08:08)
[2018-08-28] MEDS: LACTULOSE 20 GM/30 ML UDC PO SCH ×2 (08:08→20:34)
[2018-08-28 19:41] VITALS: BP 104/69
[2018-08-28] MEDS: QUETIAPINE 100MG TABLET PO SCH (20:34)
[2018-08-29 07:28] VITALS: BP 114/72
[2018-08-29] MEDS: BUPROPION SR 150 MG TABLET PO SCH (08:29)
[2018-08-29] MEDS: NICOTINE 21 MG/24 HR PATCH.TD24 TD SCH (08:29)
[2018-08-29] MEDS: DIVALPROEX 500 MG TABLET.DR PO SCH ×2 (08:29→20:17)
[2018-08-29] MEDS: LACTULOSE 20 GM/30 ML UDC PO SCH ×2 (08:29→20:18)
[2018-08-29] MEDS ORDERED: CALCIUM CARBONATE 500 MG TAB.CHEW ONE (11:41)
[2018-08-29] MEDS ORDERED: CALCIUM CARBONATE 500 MG TAB.CHEW PO PRN (12:00)
[2018-08-29 19:33] VITALS: BP 114/76
[2018-08-29] MEDS: TRAZODONE 50MG TABLET PO SCH (20:17)
[2018-08-29] MEDS: ACAMPROSATE 333 MG TABLET.DR PO SCH (20:18)
[2018-08-29] MEDS: QUETIAPINE 100MG TABLET PO SCH (20:18)
[2018-08-30 07:43] VITALS: BP 104/70
[2018-08-30] MEDS: DIVALPROEX 500 MG TABLET.DR PO SCH ×2 (08:29→20:12)
[2018-08-30] MEDS: ACAMPROSATE 333 MG TABLET.DR PO SCH ×3 (08:29→20:12)
[2018-08-30] MEDS: LACTULOSE 20 GM/30 ML UDC PO SCH ×2 (08:29→20:12)
[2018-08-30] MEDS: BUPROPION SR 150 MG TABLET PO SCH (08:29)
[2018-08-30] MEDS: NICOTINE 21 MG/24 HR PATCH.TD24 TD SCH (08:30)
[2018-08-30 19:30] VITALS: BP 109/72
[2018-08-30] MEDS: TRAZODONE 50MG TABLET PO SCH (20:12)
[2018-08-30] MEDS: QUETIAPINE 100MG TABLET PO SCH (20:13)
[2018-08-31 07:26] VITALS: BP 106/65
[2018-08-31] MEDS: ACAMPROSATE 333 MG TABLET.DR PO SCH ×3 (08:47→20:26)
[2018-08-31] MEDS: BUPROPION SR 150 MG TABLET PO SCH (08:48)
[2018-08-31] MEDS: DIVALPROEX 500 MG TABLET.DR PO SCH ×2 (08:48→20:27)
[2018-08-31] MEDS: LACTULOSE 20 GM/30 ML UDC PO SCH ×2 (08:48→20:59)
[2018-08-31] MEDS: NICOTINE 21 MG/24 HR PATCH.TD24 TD SCH (09:03)
[2018-08-31 19:40] VITALS: BP 109/72
[2018-08-31] MEDS: QUETIAPINE 100MG TABLET PO SCH (20:26)
[2018-08-31] MEDS: TRAZODONE 50MG TABLET PO SCH (20:30)
[2018-09-01 08:05] VITALS: BP 110/72
[2018-09-01] MEDS: DIVALPROEX 500 MG TABLET.DR PO SCH ×2 (08:23→20:31)
[2018-09-01] MEDS: BUPROPION SR 150 MG TABLET PO SCH (08:23)
[2018-09-01] MEDS: ACAMPROSATE 333 MG TABLET.DR PO SCH ×3 (08:23→20:31)
[2018-09-01] MEDS: NICOTINE 21 MG/24 HR PATCH.TD24 TD SCH (08:23)
[2018-09-01] MEDS: LACTULOSE 20 GM/30 ML UDC PO SCH ×3 (09:00→20:43)
[2018-09-01] MEDS: LORazepam 1MG TABLET PO PRN (12:48)
[2018-09-01 19:47] VITALS: BP 113/78
[2018-09-01] MEDS: TRAZODONE 50MG TABLET PO SCH (20:31)
[2018-09-01] MEDS: QUETIAPINE 100MG TABLET PO SCH (20:31)
[2018-09-02 07:37] VITALS: BP 102/66
[2018-09-02] MEDS: DIVALPROEX 500 MG TABLET.DR PO SCH ×2 (08:52→20:45)
[2018-09-02] MEDS: ACAMPROSATE 333 MG TABLET.DR PO SCH ×3 (08:52→20:45)
[2018-09-02] MEDS: BUPROPION SR 150 MG TABLET PO SCH (08:53)
[2018-09-02] MEDS: LACTULOSE 20 GM/30 ML UDC PO SCH ×2 (09:00→20:48)
[2018-09-02] MEDS: NICOTINE 21 MG/24 HR PATCH.TD24 TD SCH (09:00)
[2018-09-02 19:45] VITALS: BP 112/80
[2018-09-02] MEDS: TRAZODONE 50MG TABLET PO SCH (20:45)
[2018-09-02] MEDS: QUETIAPINE 100MG TABLET PO SCH (20:46)
[2018-09-03 07:31] VITALS: BP 103/70
[2018-09-03] MEDS: LACTULOSE 20 GM/30 ML UDC PO SCH ×4 (09:00→20:55)
[2018-09-03] MEDS: ACAMPROSATE 333 MG TABLET.DR PO SCH ×3 (09:20→20:50)
[2018-09-03] MEDS: DIVALPROEX 500 MG TABLET.DR PO SCH ×2 (09:20→20:51)
[2018-09-03] MEDS: NICOTINE 21 MG/24 HR PATCH.TD24 TD SCH (09:21)
[2018-09-03] MEDS: BUPROPION SR 150 MG TABLET PO SCH (09:21)
[2018-09-03] MEDS ORDERED: NICO-487 TD (14:02)
[2018-09-03] MEDS ORDERED: BUPR150T73 PO (14:02)
[2018-09-03] MEDS ORDERED: TRAZ50TA66 PO (14:02)
[2018-09-03] MEDS ORDERED: DIVA-61 PO (14:02)
[2018-09-03] MEDS ORDERED: QUET100T PO (14:02)
[2018-09-03] MEDS ORDERED: ACAM333T7 PO (14:02)
[2018-09-03] MEDS: LORazepam 1MG TABLET PO PRN (15:06)
[2018-09-03 19:49] VITALS: BP 102/68
[2018-09-03] MEDS: QUETIAPINE 100MG TABLET PO SCH (20:51)
[2018-09-03] MEDS: TRAZODONE 50MG TABLET PO SCH (20:51)
[2018-09-04 07:42] VITALS: BP 104/68
[2018-09-04] MEDS: LACTULOSE 20 GM/30 ML UDC PO SCH (08:18)
[2018-09-04] MEDS: DIVALPROEX 500 MG TABLET.DR PO SCH (08:18)
[2018-09-04] MEDS: BUPROPION SR 150 MG TABLET PO SCH (08:18)
[2018-09-04] MEDS: ACAMPROSATE 333 MG TABLET.DR PO SCH (08:18)
[2018-09-04] MEDS: NICOTINE 21 MG/24 HR PATCH.TD24 TD SCH (08:19)
[2018-09-04] MEDS: LORazepam 1MG TABLET PO PRN (11:09)
== END 2018-09-04 11:50 | disposition home or self-care (01) | DRG 753 ==
LOC: 3E 20:58
PROVIDERS: ADMIT Psychiatry & Neurology Psychosomatic Medicine; ATTEND Psychiatry & Neurology Psychosomatic Medicine
DX: F31.30 Bipolar disorder, current episode depressed, mild or moderate severity, unspecified (principal); F15.20 Other stimulant dependence, uncomplicated; R45.851 Suicidal ideations; R56.9 Unspecified convulsions; B19.20 Unspecified viral hepatitis C without hepatic coma; D75.89 Other specified diseases of blood and blood-forming organs; F10.239 Alcohol dependence with withdrawal, unspecified; F11.21 Opioid dependence, in remission; G43.909 Migraine, unspecified, not intractable, without status migrainosus; G47.00 Insomnia, unspecified; F17.210 Nicotine dependence, cigarettes, uncomplicated; Z86.14 Personal history of Methicillin resistant Staphylococcus aureus infection
CPT/HCPCS: 36415; 71045; 80048; 80061; 80164; 81003; 82140; 82607; 84439; 84443; 85025; 85651; 86592; 87806; 93005; G0475

== ENCOUNTER 2019-07-08 13:08 | Emergency (ER) | payer MEDICAID ==
[~2019-07-08] VITALS: Ht 180.3 cm; Wt 86.4 kg
[~2019-07-08 13:08] MED LIST changes: +ACAM333T7 PO; +BUPR150T73 PO; +DIVA-61 PO; +NICO-487 TD; +QUET100T PO; +TRAZ50TA66 PO
--- NOTE | 2019-07-08 13:38 | NUR ---
DEXTERTER REQUEST MADE WITH NURSING OPS
--- NOTE | 2019-07-08 13:45 | NUR ---
LATE ENTRY FOR ARRIVAL 1330, PT +ETOH, BIB EMS, WAS FOUND LYING ON GROUND INFRONT OF 7-11 +ETOH, PT VERBALIZIED TO EMS THAT HE WANTED TOKILL HIMSELF. PT ARRIVES AMBULATORY AND UNCOOPERATIVE. PT HAS PITBULL DOG ON LEASH WITH HIM AND DOES NOT WANT TO LEAVE HIS DOG. AFTER REPEATED REASSURANCE THAT HIS DOG WOULD BE TAKEN CARE OF PT AMBULATED TO ROOM. HE PROVIDED A URINE SAMPLE AND REMOVED HIS CLOTHES AND PUT ON HOSPITAL GOWN. VSS, BA 0.284. PT REQIUIRING REPEATED REDIRECTION TO STAY IN [facility] AND REASSURANCES THAT HIS DOG IS "OK". DR KINGSTON TO BEDSIDE AND PT WAS VERBALLY ABUSSIVE AND NON-COOPERATIVE IN ANSWERING QUESTIONS. PT GOT OUT OF [facility] AFTER LEFT AND WANTED TO SEE HIS DOG. I REDIRECTED HIM AND GAVE REASSURANCE THAT HIS DOG WAS OK. CALL LIGHT W/I REACH AND INSTRUTED PT ON HOW TO USE IT TO WATCH TV. PT DECLINES TV AT THIS TIME. MEAL TRAY ORDERED. LABS SENT.
[2019-07-08 14:23] LABS: BASOPHILS # (AUTO) 0.08 x10^3/uL (0-0.1); BASOPHILS % (AUTO) 1 % (0-1); EOSINOPHILS # (AUTO) 0.08 x10^3/uL (0-0.4); EOSINOPHILS % (AUTO) 1 % (1-7); LYMPHOCYTES # (AUTO) 3.38 x10^3/uL (1-3.4); LYMPHOCYTES % (AUTO) 23 % (22-44); MD NO; MEAN CORPUSCULAR HEMOGLOBIN 32.3 pg (27.5-34.5); MEAN CORPUSCULAR HGB CONC 33.4 g/dL (33.2-36.2); MEAN CORPUSCULAR VOLUME 96.9 fL (81-97); MONOCYTES # (AUTO) 0.73 x10^3/uL (0.2-0.8); MONOCYTES % (AUTO) 5 % (2-9); NEUTROPHILS # (AUTO) 10.23 x10^3/uL (1.8-6.8); NEUTROPHILS % (AUTO) 71 % (42-75); PLATELET COUNT 218 x10^3/uL (130-400); RED BLOOD COUNT 4.89 x10^6/uL (4.38-5.82); RED CELL DISTRIBUTION WIDTH 13.9 % (9.4-14.8)
--- NOTE | 2019-07-08 14:27 | NUR ---
BAG SEWER: CHECKED ON DOG IN [place]. DOG SLEEPING. WATER PROVIDED
[2019-07-08 14:36] LABS: ALANINE AMINOTRANSFERASE 22 U/L (12-78); ALBUMIN 3.7 g/dL (3.4-5.0); ANION GAP 10 mmol/L (5-15); CALCIUM 8.1 mg/dL (8.5-10.1); CHLORIDE 109 mmol/L (98-107); CREATININE 0.84 mg/dL (0.7-1.3); SALICYLATE LEVEL 3.9 mg/dL (2.8-20.0)
[2019-07-08 14:46] LABS: ALKALINE PHOSPHATASE 61 U/L (45-117); BILIRUBIN,TOTAL 0.3 mg/dL (0.2-1.0); TOTAL PROTEIN 8.2 g/dL (6.4-8.2)
[2019-07-08 15:02] LABS: AMPHETAMINE SCREEN, URINE Negative (Negative); BARBITURATE SCREEN, URINE Negative (Negative); BENZODIAZEPINE SCREEN, URINE Negative (Negative); CANNABINOID SCREEN, URINE Negative (Negative); COCAINE SCREEN, URINE Negative (Negative); METHADONE SCREEN, URINE Negative (Negative); OPIATE SCREEN, URINE Negative (Negative)
--- NOTE | 2019-07-08 16:08 | NUR ---
PT HAS BEEN SLEEPING FOR THE PAST HOUR. NOW ARROUSES TO VERBAL STIMULATION. BA = 0.26. PT IS PLEASANT AND COOPERATIVE. SI MEAL TRAY PROVIDED AND PT SITTING UP AND EATING. NAD NOTED. INFORMED PT THAT I HAD JUST CHECKED ON HIS DOG "NORA" SHE IS IN THE [place] IN THE SHADE AT THE AMBULANCE BAY. SHE HAS WATER AND VOIDED PRIOR TO BEING PLACED IN THE [place]. SHE WAS LYING QUIETLY AND DID NOT APPEAR TO BE IN ANY DISTRESS. PT THANKED ME. SITTER REMAINS AT DOORWAY WITH PT IN VIEW AND ROOM IS SECURED.
--- NOTE | 2019-07-08 16:48 | NUR ---
DR KINGSTON SPOKE WITH PT. PT CALM AND COOPERATIVE. PT CONTINUES TO VERBALIZES FEELINGS OF SI. PT VERBALIZES UNDERSTANDING THAT HE WILL NEED TO BE SOBER BEFORE ANY FURTHER PSYCH EVAL CAN BE COMPLETED. SITTER REMAINS AT DOORWAY. PT ATE ONLY A FEW BITES OF HIS MEAL. PT REQUESTIONS TO SLEEP
--- NOTE | 2019-07-08 17:46 | NUR ---
I SPOKE WITH PT REGARDING HIS DOG AND EXPLAINED THAT IT WOULD NOT BE FAIR TO NORA FOR HER TO HAVE TO STAY CONFINED IN THE [place]. I EXPLEAINED THAT I WOULD BE CONTACTING [facility] AND THEY WILL GET NORA AND TAKE HER TO THE [facility] AND WILL CARE FOR HER WHILE HE IS IN THE HOSPITAL. ANIMAL CONTROL WILL KEEP THE ANIMAL FOR UP TO 5 DAYS WHICH WILL GIVE HIM TIME TO RECIEVE HIS TREATMENT AND IF IT IS GOING TO EXTEND BEYOND 5 DAYS WE CAN WORK ON MAKING FURTHER ARRAINGMENTS. PT VERBALIZED UNDERSTANDING AND COOPERATIVE WITH PLAN. I CONTACTED [facility] AT [phone], THEY WILL BE COMING TO SMALL ENGINE TRAINER NORA.
--- NOTE | 2019-07-08 19:39 | NUR ---
REPORT RECEIVED FROM HARVEY LAMA AND CARE ASSUMED OF PT AT THIS TIME. ANIMAL CONTROL CAME AND TOOK POSSESSION OF PT'S DOG, NORA. IMPOUND NUMBER [id number].
--- NOTE | 2019-07-08 19:40 | NUR ---
PT SLEEPING AT THIS TIME. SITTER OUTSIDE.
--- NOTE | 2019-07-08 20:15 | NUR ---
PT CONTINUES TO SLEEP. WILL ATTEMPT BREATHALYZER WHEN PT WAKES UP. SITTER OUTSIDE ROOM.
--- NOTE | 2019-07-08 20:40 | NUR ---
WOKE PT TO GET BREATHALIZER. 0.193 AT THIS TIME. VSS. PT CALM AND COOPERATIVE WITH STAFF. REPORTS SUICIDAL IDEATIONS WITH PLAN. REPORTS HE WOULD OVERDOSE ON PILLS. SITTER OUTSIDE ROOM.
--- NOTE | 2019-07-09 02:03 | NUR ---
BREATHALIZER 0.067 AT THIS TIME. PT REPORTS HE HAS SUICIDAL IDEATION WITH PLAN TO TAKE PILLS. REPORTS CURRENT LIFE STRESSORS. PT REMAINS CALM AND COOPERATIVE WITH STAFF. SLEEPING BETWEEN CARES. PROVIDER INFORMED.
--- NOTE | 2019-07-09 04:50 | NUR ---
PT CONTINUES TO SLEEP. SITTER OUTSIDE ROOM.
[2019-07-09] MEDS ORDERED: SERT50TA PO (06:14)
[2019-07-09] MEDS ORDERED: SERT100T PO (06:14)
--- NOTE | 2019-07-09 07:12 | NUR ---
REPORT GIVEN TO JUS LAMA
--- NOTE | 2019-07-09 07:16 | NUR ---
REPORT RECEIVED FROM ANNE MARIE LAMA. PT SLEEPING ON GURNEY W/ SITTER OUTSIDE ROOM AND GARAGE DOORS DOWN FOR SAFETY. CHEST RISE AND FALL OBSERVED.
[2019-07-09 08:26] VITALS: BP 123/80
--- NOTE | 2019-07-09 08:26 | NUR ---
ASSIST RN: PT RESTING CALMLY IN BED, NO STATED NEEDS AT THIS TIME. PT HAS BREAKFAST TRAY AT BEDSIDE. SITTER OUTSIDE ROOM FOR FREQUENT OBS. WILL CONTINUE TO MONITOR.
--- NOTE | 2019-07-09 08:58 | NUR ---
PER ANNE MARIE RN (NIGHTSHIFT NURSE) ANIMAL CONTROL CAME TO STORE HAND PTS DOG 07/07 AT 1930. COLLECTING OFFICER LYSSA AVELAR. PHONE NUMBER [phone]. VIOLATION # [id number]. PT AWARE.
--- NOTE | 2019-07-09 09:44 | NUR ---
PT SLEEPING ON GURNEY W/ SITTER OUTSIDE ROOM AND GARAGE DOORS DOWN FOR SAFETY. CHEST RISE AND FALL OBSERVED.
--- NOTE | 2019-07-09 10:37 | NUR ---
PT TRANSPORTED TO HOSPITAL BED. RESP EVEN AND UNLABORED, NADN. SITTER OUTSIDE ROOM, GARAGE DOORS DOWN FOR SAFETY.
--- NOTE | 2019-07-09 10:59 | NUR ---
PTS FATHER AMNA ALMAGUER CALLED TO CHECK ON STATUS OF PT. PER PT DOES NOT WANT TO GIVE UPDATE ON VISIT HOWEVER WOULD LIKE FATHER TO DRIVABILITY TECHNICIAN HIS DOG FROM [facility]. GAVE THIS RN PERMISSION TO SHARE INFORMATION REGARDINGS DOGS LOCATION.
--- NOTE | 2019-07-09 11:12 | NUR ---
[facility] EMERGENCY SAFEHOLD WAVIER AND RELEASE OF PERSONAL PROPERTY FORMS FAXED TO [phone] AND [phone].
--- NOTE | 2019-07-09 11:29 | NUR ---
ELIEL SOLIS IN ROOM FOR EVAL.
[2019-07-09] MEDS ORDERED: SERTRALINE 100MG TABLET PO ONE (12:00)
[2019-07-09] MEDS ORDERED: SERTRALINE 50MG TABLET ONE (12:06)
--- NOTE | 2019-07-09 13:12 | NUR ---
REPORT GIVEN TO DEBBIE LAMA. PT IS READY FOR TRANSPORT. [facility] WILL CALL BACK WHEN THEY ARE READY TO ACCEPT THE PT.
== END 2019-07-09 14:08 ==
LOC: ED 23:08
DX: R45.851 Suicidal ideations (principal)
CPT/HCPCS: 36415; 80053; 80307; 84443; 85025; 99285

== ENCOUNTER 2019-07-09 12:29 | Inpatient (IN) | payer MEDICAID ==
[~2019-07-09] VITALS: Ht 180.3 cm; Wt 109.0 kg
[~2019-07-09 12:29] MED LIST changes: +SERT100T PO; +SERT50TA PO
[2019-07-09] MEDS ORDERED: POLYETHYLENE GLYCOL 17 GM PACKET PO PRN (13:00)
[2019-07-09] MEDS ORDERED: ACETAMINOPHEN 325 MG TABLET PO PRN (13:00)
[2019-07-09] MEDS ORDERED: DOCUSATE 100 MG CAPSULE PO PRN (13:00)
[2019-07-09] MEDS ORDERED: BISACODYL 10 MG SUPP PR PRN (13:00)
[2019-07-09] MEDS ORDERED: PLEASE ENTER HEIGHT AND WEIGHT MC SCH (14:30)
[2019-07-09 15:20] VITALS: BP 137/94
[2019-07-09] MEDS: TOPIRAMATE 25 MG TABLET PO SCH ×2 (17:47→21:00)
[2019-07-09] MEDS: NICOTINE 14MG/24 HR PATCH.TD24 TD SCH (17:47)
[2019-07-09 18:08] LABS: MICROSCOPIC INDICATED
[2019-07-09 19:16] LABS: CHOL/HDL RATIO 3.6; LDL/HDL RATIO 1.9 (0.5-3.0)
[2019-07-09 19:33] VITALS: BP 133/82
[2019-07-10 07:24] VITALS: BP 139/90
[2019-07-10] MEDS: CEFDINIR 300 MG CAPSULE PO SCH ×2 (09:29→21:17)
[2019-07-10] MEDS: TOPIRAMATE 25 MG TABLET PO SCH ×2 (09:29→21:16)
[2019-07-10 15:33] LABS: ANION GAP 9 mmol/L (5-15); CALCIUM 7.9 mg/dL (8.5-10.1); CHLORIDE 105 mmol/L (98-107)
[2019-07-10 15:34] LABS: CREATININE 0.74 mg/dL (0.7-1.3)
[2019-07-10] MEDS: NICOTINE 14MG/24 HR PATCH.TD24 TD SCH (18:12)
[2019-07-10 19:54] VITALS: BP 134/84
[2019-07-11 07:00] VITALS: BP 131/90
[2019-07-11] MEDS: CEFDINIR 300 MG CAPSULE PO SCH ×2 (08:39→20:31)
[2019-07-11] MEDS: TOPIRAMATE 25 MG TABLET PO SCH ×2 (08:39→20:31)
[2019-07-11] MEDS: NICOTINE 14MG/24 HR PATCH.TD24 TD SCH (17:56)
[2019-07-11 19:30] VITALS: BP 111/73
[2019-07-12 07:54] VITALS: BP 99/64
[2019-07-12] MEDS: TOPIRAMATE 25 MG TABLET PO SCH ×2 (08:31→20:48)
[2019-07-12] MEDS: CEFDINIR 300 MG CAPSULE PO SCH ×2 (08:31→20:48)
[2019-07-12] MEDS ORDERED: NICO-486 TD (12:21)
[2019-07-12] MEDS ORDERED: QUET100T PO (12:21)
[2019-07-12] MEDS ORDERED: TOPI25TA32 PO (12:21)
[2019-07-12] MEDS ORDERED: SERT100T PO (12:21)
[2019-07-12] MEDS: NICOTINE 14MG/24 HR PATCH.TD24 TD SCH (12:33)
[2019-07-12 19:58] VITALS: BP 122/83
[2019-07-12] MEDS ORDERED: TRAZODONE 100MG TABLET PO ONE (23:00)
[2019-07-13 07:19] VITALS: BP 105/70
[2019-07-13] MEDS: TOPIRAMATE 25 MG TABLET PO SCH (08:15)
[2019-07-13] MEDS: CEFDINIR 300 MG CAPSULE PO SCH (08:15)
== END 2019-07-13 08:45 | disposition home or self-care (01) | DRG 753 ==
LOC: 3E 14:11
PROVIDERS: ADMIT Psychiatry & Neurology Psychosomatic Medicine; ATTEND Psychiatry & Neurology Psychosomatic Medicine
DX: F31.30 Bipolar disorder, current episode depressed, mild or moderate severity, unspecified (principal); R45.851 Suicidal ideations; B19.20 Unspecified viral hepatitis C without hepatic coma; F10.229 Alcohol dependence with intoxication, unspecified; F17.210 Nicotine dependence, cigarettes, uncomplicated; F41.9 Anxiety disorder, unspecified; N39.0 Urinary tract infection, site not specified; Z79.899 Other long term (current) drug therapy; Z71.6 Tobacco abuse counseling
CPT/HCPCS: 36415; 71045; 80048; 80053; 80061; 80307; 81001; 82140; 82607; 84443; 85025; 87086; 93005; 99285

== ENCOUNTER 2019-08-18 23:14 | Emergency (ER) | payer MEDICAID ==
[~2019-08-18] VITALS: Ht 180.3 cm; Wt 114.2 kg
[~2019-08-18 23:14] MED LIST changes: +NICO-486 TD; +TOPI25TA32 PO
--- NOTE | 2019-08-18 23:36 | NUR ---
PT AMBULATORY TO ROOM. PT'S BELONGINGS TO STORAGE LOCKER. DOORS IN ROOM DOWN. PT LAYING IN BED, WIPING AWAY TEARS. STATES "I'M SUICIDAL, MY LIFE SUCKS" REFUSES TO ANSWER ANY OTHER QUESTOINS. ERP TO BEDSIDE.
--- NOTE | 2019-08-19 00:31 | NUR ---
PT SLEEPING, RESPIRATIONS EVEN AND UNLABORED, CALL LIGHT IN REACH, BED RAILS UP.
--- NOTE | 2019-08-19 01:18 | NUR ---
PT REMAINS SLEEPING, RESPIRATIONS EVEN AND UNLABORED.
--- NOTE | 2019-08-19 02:13 | NUR ---
PT CONDITION REMAINS UNCHANGED.
--- NOTE | 2019-08-19 03:03 | NUR ---
PT SLEEPING, RESPIRATIONS EVEN AND UNLABORED.
[2019-08-19 04:23] LABS: BASOPHILS # (AUTO) 0.02 x10^3/uL (0-0.1); BASOPHILS % (AUTO) 0 % (0-1); EOSINOPHILS # (AUTO) 0.14 x10^3/uL (0-0.4); EOSINOPHILS % (AUTO) 2 % (1-7); LYMPHOCYTES # (AUTO) 2.84 x10^3/uL (1-3.4); LYMPHOCYTES % (AUTO) 31 % (22-44); MD NO; MEAN CORPUSCULAR HEMOGLOBIN 32.3 pg (27.5-34.5); MEAN CORPUSCULAR HGB CONC 33.6 g/dL (33.2-36.2); MEAN CORPUSCULAR VOLUME 96.2 fL (81-97); MEAN PLATELET VOLUME 10.6 fL (7.4-10.4); MONOCYTES % (AUTO) 7 % (2-9); NEUTROPHILS # (AUTO) 5.55 x10^3/uL (1.8-6.8); NEUTROPHILS % (AUTO) 61 % (42-75); PLATELET COUNT 175 x10^3/uL (130-400); RED BLOOD COUNT 4.55 x10^6/uL (4.38-5.82); RED CELL DISTRIBUTION WIDTH 14.7 % (9.4-14.8)
--- NOTE | 2019-08-19 04:26 | NUR ---
PT AWAKE, DENIED ANY REQUESTS.
[2019-08-19 04:31] LABS: ALANINE AMINOTRANSFERASE 25 U/L (12-78); ALBUMIN 3.6 g/dL (3.4-5.0); ANION GAP 7 mmol/L (5-15); CALCIUM 7.6 mg/dL (8.5-10.1); CHLORIDE 111 mmol/L (98-107); CREATININE 0.92 mg/dL (0.7-1.3); SALICYLATE LEVEL 3.9 mg/dL (2.8-20.0)
[2019-08-19 04:33] LABS: ALKALINE PHOSPHATASE 60 U/L (45-117); BILIRUBIN,TOTAL 0.4 mg/dL (0.2-1.0); TOTAL PROTEIN 7.5 g/dL (6.4-8.2)
--- NOTE | 2019-08-19 04:43 | NUR ---
PT SITTING UP TO DO CLEAN CATCH URINE.
[2019-08-19 05:10] LABS: AMPHETAMINE SCREEN, URINE Negative (Negative); BARBITURATE SCREEN, URINE Negative (Negative); BENZODIAZEPINE SCREEN, URINE Negative (Negative); CANNABINOID SCREEN, URINE Negative (Negative); COCAINE SCREEN, URINE Negative (Negative); METHADONE SCREEN, URINE Negative (Negative); OPIATE SCREEN, URINE Negative (Negative)
--- NOTE | 2019-08-19 07:00 | NUR ---
REPORT GIVEN TO KELBY NEUMANN AND KELBY DUFFY.
--- NOTE | 2019-08-19 07:01 | NUR ---
SBAR BEDSIDE HAND-OFF REPORT RECEIVED FROM KELBY SCHULTZ. ASSUMING CARE OF PATIENT.
[2019-08-19 12:25] VITALS: BP 114/64
--- NOTE | 2019-08-19 12:26 | NUR ---
SUICIDE RISK REASSESSMENT DONE. PT HAS A PLAN TO OVERDOSE ON SLEEPING PILLS. LUNCH TRAY SERVED BUT PATIENT REFUSED. VS UPDATED AND WNL. 2 GLASSES OF WATER GIVEN TO PATIENT.
--- NOTE | 2019-08-19 15:44 | NUR ---
REPORT RECEIVED FROM NEL LAMA. PT AMBULATED TO ROOM W/ A STEADY GAIT AT THIS TIME. PT IS SI W/ A PLAN TO OD ON SLEEPING PILLS. PT RESTING ON HOSPITAL BED W/ SITTER OUTSIDE ROOM AND GARAGE DOORS DOWN FOR SAFETY. BELONGINGS IN SAFE KEEPING. RESP EVEN AND UNLABORED, VIJAY.
--- NOTE | 2019-08-19 16:31 | NUR ---
REPORT GIVEN TO GINA. PT IS READY FOR TRANSPORT AT THIS TIME.
[2019-08-19] MEDS ORDERED: QUET100T4 PO (19:16)
== END 2019-08-19 16:51 ==
LOC: ED 08-19 00:44
DX: R45.851 Suicidal ideations (principal); F17.200 Nicotine dependence, unspecified, uncomplicated
CPT/HCPCS: 36415; 80053; 80307; 85025; 99285

== ENCOUNTER 2019-08-19 15:41 | Inpatient (IN) | payer MEDICAID ==
[~2019-08-19] VITALS: Ht 180.3 cm; Wt 111.4 kg
[2019-08-19 17:00] VITALS: BP 124/82
[2019-08-19] MEDS ORDERED: QUET100T4 PO (19:16)
[2019-08-19 19:21] VITALS: BP 100/60
[2019-08-19] MEDS: TOPIRAMATE 25 MG TABLET PO SCH (20:31)
[2019-08-19] MEDS: QUETIAPINE 100MG TABLET PO SCH (20:34)
[2019-08-20] MEDS ORDERED: POLYETHYLENE GLYCOL 17 GM PACKET NG PRN
[2019-08-20] MEDS ORDERED: ONDANSETRON 4 MG TABLET PO PRN
[2019-08-20] MEDS ORDERED: DOCUSATE 100 MG CAPSULE PO PRN
[2019-08-20 07:33] LABS: CALCIUM 8.4 mg/dL (8.5-10.1); CHLORIDE 109 mmol/L (98-107)
[2019-08-20 07:43] LABS: ALANINE AMINOTRANSFERASE 23 U/L (12-78); ALBUMIN 3.3 g/dL (3.4-5.0); ALKALINE PHOSPHATASE 62 U/L (45-117); ANION GAP 5 mmol/L (5-15); BILIRUBIN,TOTAL 0.7 mg/dL (0.2-1.0); CHOL/HDL RATIO 4.6; CHOLESTEROL, TOTAL 232 mg/dL (140-239); FREE T4 (FREE THYROXINE) 0.91 ng/dL (0.76-1.46); HDL CHOL % 22 % (26-37); HDL CHOLESTEROL (DIRECT) 50 mg/dL (40-60); LDL CHOLESTEROL,CALCULATED 141 mg/dL (54-169); LDL/HDL RATIO 2.8 (0.5-3.0); TOTAL PROTEIN 7.2 g/dL (6.4-8.2); TRIGLYCERIDES 205 mg/dL (50-200); VLDL CHOLESTEROL 41 mg/dL (0-25)
[2019-08-20 07:55] VITALS: BP 132/77
[2019-08-20] MEDS: TOPIRAMATE 25 MG TABLET PO SCH ×2 (09:16→20:24)
[2019-08-20] MEDS: SERTRALINE 100MG TABLET PO SCH (09:16)
[2019-08-20 19:39] VITALS: BP 121/75
[2019-08-20] MEDS: QUETIAPINE 100MG TABLET PO SCH (20:25)
[2019-08-21 07:25] VITALS: BP 104/66
[2019-08-21] MEDS: THIAMINE 100MG TABLET PO SCH (08:30)
[2019-08-21] MEDS: SERTRALINE 100MG TABLET PO SCH (08:30)
[2019-08-21] MEDS: NICOTINE 21 MG/24 HR PATCH.TD24 TD SCH (08:30)
[2019-08-21] MEDS: MULTIVITAMIN 1 TABLET PO SCH (08:30)
[2019-08-21] MEDS: TOPIRAMATE 25 MG TABLET PO SCH ×2 (08:30→20:10)
[2019-08-21 10:24] LABS: MICROSCOPIC INDICATED
[2019-08-21 19:59] VITALS: BP 115/72
[2019-08-21] MEDS: QUETIAPINE 100MG TABLET PO SCH (20:10)
[2019-08-22 07:37] VITALS: BP 127/78
[2019-08-22] MEDS: SERTRALINE 100MG TABLET PO SCH (08:40)
[2019-08-22] MEDS: THIAMINE 100MG TABLET PO SCH (08:40)
[2019-08-22] MEDS: MULTIVITAMIN 1 TABLET PO SCH (08:40)
[2019-08-22] MEDS: TOPIRAMATE 25 MG TABLET PO SCH ×2 (08:40→20:42)
[2019-08-22] MEDS: NICOTINE 21 MG/24 HR PATCH.TD24 TD SCH (08:41)
[2019-08-22 19:08] VITALS: BP 113/78
[2019-08-22] MEDS: QUETIAPINE 100MG TABLET PO SCH (20:42)
[2019-08-23 07:41] VITALS: BP 128/67
[2019-08-23] MEDS: SERTRALINE 100MG TABLET PO SCH (09:08)
[2019-08-23] MEDS: TOPIRAMATE 25 MG TABLET PO SCH ×2 (09:08→19:50)
[2019-08-23] MEDS: NICOTINE 21 MG/24 HR PATCH.TD24 TD SCH (09:08)
[2019-08-23] MEDS: MULTIVITAMIN 1 TABLET PO SCH (09:08)
[2019-08-23] MEDS: THIAMINE 100MG TABLET PO SCH (09:08)
[2019-08-23] MEDS: ACETAMINOPHEN 325 MG TABLET PO PRN (13:03)
[2019-08-23 19:50] VITALS: BP 122/77
[2019-08-23] MEDS: QUETIAPINE 100MG TABLET PO SCH (19:50)
[2019-08-24 07:36] VITALS: BP 107/82
[2019-08-24] MEDS: SERTRALINE 100MG TABLET PO SCH (08:16)
[2019-08-24] MEDS: THIAMINE 100MG TABLET PO SCH (08:17)
[2019-08-24] MEDS: MULTIVITAMIN 1 TABLET PO SCH (08:17)
[2019-08-24] MEDS: TOPIRAMATE 25 MG TABLET PO SCH ×2 (08:17→20:45)
[2019-08-24] MEDS: NICOTINE 21 MG/24 HR PATCH.TD24 TD SCH (08:17)
[2019-08-24] MEDS ORDERED: NICO-487 TD (09:22)
[2019-08-24] MEDS ORDERED: QUET100T PO (09:22)
[2019-08-24] MEDS ORDERED: TOPI25TA32 PO (09:22)
[2019-08-24] MEDS ORDERED: MULT-449 PO (09:22)
[2019-08-24] MEDS ORDERED: SERT100T32 PO (09:22)
[2019-08-24] MEDS: ACETAMINOPHEN 325 MG TABLET PO PRN ×2 (14:17→20:45)
[2019-08-24 20:05] VITALS: BP 106/73
[2019-08-24] MEDS: QUETIAPINE 100MG TABLET PO SCH (20:45)
[2019-08-25 07:18] VITALS: BP 104/70
[2019-08-25] MEDS: NICOTINE 21 MG/24 HR PATCH.TD24 TD SCH (08:14)
[2019-08-25] MEDS: TOPIRAMATE 25 MG TABLET PO SCH (08:15)
[2019-08-25] MEDS: MULTIVITAMIN 1 TABLET PO SCH (08:15)
[2019-08-25] MEDS: SERTRALINE 100MG TABLET PO SCH (08:15)
[2019-08-25] MEDS: THIAMINE 100MG TABLET PO SCH (08:15)
== END 2019-08-25 16:25 | disposition home or self-care (01) | DRG 753 ==
LOC: 3E 16:45
PROVIDERS: ADMIT Psychiatry & Neurology Psychosomatic Medicine; ATTEND Psychiatry & Neurology Psychosomatic Medicine
DX: F31.30 Bipolar disorder, current episode depressed, mild or moderate severity, unspecified (principal); B19.20 Unspecified viral hepatitis C without hepatic coma; E66.9 Obesity, unspecified; Z68.34 Body mass index [BMI] 34.0-34.9, adult; F10.20 Alcohol dependence, uncomplicated; F17.200 Nicotine dependence, unspecified, uncomplicated; F41.9 Anxiety disorder, unspecified; G47.00 Insomnia, unspecified; R45.851 Suicidal ideations; Y90.7 Blood alcohol level of 200-239 mg/100 ml; Z79.899 Other long term (current) drug therapy
CPT/HCPCS: 36415; 71045; 80053; 80061; 80307; 81001; 84439; 84443; 85025; 87086; 93005; 99285

== ENCOUNTER → 2019-10-19 | Emergency (ER) | payer MEDICAID ==
[~2019-10-19] VITALS: Ht 180.3 cm; Wt 107.1 kg
[~2019-10-19] MED LIST changes: +MULT-449 PO; +QUET100T4 PO; +SERT100T32 PO
--- NOTE | 2019-10-19 22:03 | NUR ---
FROM TRIAGE FOR SI, PT WITH DEPRESSION HX AND MULTIPLE ADMITS FOR SI REPORTS FEELING LIKE HE WANTS TO "KILL HIMSELF BY TAKING ALL MY PILLS" STATES HAS NOT TAKEN ANY TODAY. ALL BELONGINGS REMOVED CHANGED TO HOSPITAL GOWN, ROOM SECURE PER POLICY. X1 BAG OF UNSEARCHED BELONGINGS TO STORAGE/LOCK. AIDET PROVIDED. WILL CONTINUE TO MONITOR.
[2019-10-19 22:52] LABS: ALBUMIN 3.9 g/dL (3.4-5.0); CALCIUM 8.5 mg/dL (8.5-10.1); CREATININE 1.11 mg/dL (0.7-1.3)
[2019-10-19 22:56] LABS: MEAN CORPUSCULAR HEMOGLOBIN 32.6 pg (27.5-34.5); MEAN CORPUSCULAR VOLUME 98.7 fL (81-97); MEAN PLATELET VOLUME 11.8 fL (7.4-10.4); PLATELET COUNT 226 x10^3/uL (130-400); RED BLOOD COUNT 5.12 x10^6/uL (4.38-5.82); RED CELL DISTRIBUTION WIDTH 15.1 % (9.4-14.8)
--- NOTE | 2019-10-19 23:00 | NUR ---
URINE SAMPLE COLLECTED, PT REMAINS IN SAFE/PSYCH ROOM IN NAD, SAFETY CHECKS CURRENT, BLANKET PROVIDED. AWAITING TELE PSYCH CONSULT. WILL CONTINUE TO MONITOR.
[2019-10-19 23:09] LABS: BASOPHILS # (AUTO) 0.24 x10^3/uL (0-0.1); BASOPHILS % (AUTO) 2 % (0-1); EOSINOPHILS # (AUTO) 0.06 x10^3/uL (0-0.4); EOSINOPHILS % (AUTO) 1 % (1-7); LYMPHOCYTES # (AUTO) 3.57 x10^3/uL (1-3.4); LYMPHOCYTES % (AUTO) 30 % (22-44); MD MORPH REVIEW ONLY; MONOCYTES # (AUTO) 1.24 x10^3/uL (0.2-0.8); MONOCYTES % (AUTO) 10 % (2-9); NEUTROPHILS # (AUTO) 6.87 x10^3/uL (1.8-6.8); NEUTROPHILS % (AUTO) 57 % (42-75)
[2019-10-19 23:11] LABS: ANISOCYTOSIS 1+
[2019-10-19 23:13] LABS: <PLATELET ESTIMATE> ADEQUATE
[2019-10-19 23:14] LABS: LARGE PLATELETS 1+
[2019-10-19 23:19] LABS: ALANINE AMINOTRANSFERASE 40 U/L (12-78); ALKALINE PHOSPHATASE 86 U/L (45-117); ANION GAP 11 mmol/L (5-15); BILIRUBIN,TOTAL 0.8 mg/dL (0.2-1.0); CHLORIDE 104 mmol/L (98-107); TOTAL PROTEIN 8.3 g/dL (6.4-8.2)
[2019-10-19 23:57] LABS: AMPHETAMINE SCREEN, URINE Positive (Negative); BARBITURATE SCREEN, URINE Negative (Negative); BENZODIAZEPINE SCREEN, URINE Positive (Negative); CANNABINOID SCREEN, URINE Negative (Negative); COCAINE SCREEN, URINE Negative (Negative); METHADONE SCREEN, URINE Negative (Negative); OPIATE SCREEN, URINE Negative (Negative)
--- NOTE | 2019-10-20 | NUR ---
NO CHANGE IN ASSESSMENT, REMAINS CALM, COOPERATIVE. SNACKS PROVIDED, WATER. ROOM SAFETY CHECK COMPLETE.
--- NOTE | 2019-10-20 01:08 | NUR ---
NO CHANGE IN ASSESSMENT, SAFETY CHECK UPDATED. REMAINS CALM COOPERATIVE. AWAITING PSYCH EVAL. WILL CONTINUE TO MONITOR.
--- NOTE | 2019-10-20 02:06 | NUR ---
PT ON LEGAL HOLD, SAFETY UPDATED, SITTER OUTSIDE ROOM IN LINE OF SITE. SNACKS PROVIDED, WAITING FOR BEHAVIOR BED. AIDET PROVIDED. WILL CONTINUE TO MONITOR.
--- NOTE | 2019-10-20 03:39 | NUR ---
PT PLACED ON HOSPITAL BED, SLEEPING WITH RESPIRATONS EVEN AND UNLABORED, IN VIEW OF SITTER.
--- NOTE | 2019-10-20 05:57 | NUR ---
PT REMAINS SLEEPING.
--- NOTE | 2019-10-20 06:55 | NUR ---
MT: PSYCH PACKET SENT TO [facility], [facility], [facility], AND [facility].
--- NOTE | 2019-10-20 06:56 | NUR ---
REPORT GIVEN TO KELBY AHMMOND.
--- NOTE | 2019-10-20 07:06 | NUR ---
report received from jammie white.
--- NOTE | 2019-10-20 07:29 | NUR ---
diet tray ordered at this time.
--- NOTE | 2019-10-20 08:13 | NUR ---
diet tray provided at this time.
--- NOTE | 2019-10-20 09:00 | NUR ---
THROUGHT PUT: ALEYDA THOMAS AT [facility] WILL ACCEPT PT
[2019-10-20 09:10] VITALS: BP 118/63
--- NOTE | 2019-10-20 09:17 | NUR ---
report given to bubba white. all questions answered.
== END ==
LOC: ED 23:07
DX: R45.851 Suicidal ideations (principal); F32.9 Major depressive disorder, single episode, unspecified; F17.210 Nicotine dependence, cigarettes, uncomplicated; F15.10 Other stimulant abuse, uncomplicated; F10.10 Alcohol abuse, uncomplicated; Z72.9 Problem related to lifestyle, unspecified; Z86.19 Personal history of other infectious and parasitic diseases; Y90.0 Blood alcohol level of less than 20 mg/100 ml
CPT/HCPCS: 36415; 80053; 80307; 84443; 85025; 99283; 99284

== ENCOUNTER 2019-10-20 09:00 | Inpatient (IN) | payer MEDICAID ==
[~2019-10-20] VITALS: Ht 180.3 cm; Wt 105.0 kg
[2019-10-20 10:49] VITALS: BP 104/64
[2019-10-20] MEDS ORDERED: BISACODYL 10 MG SUPP PR PRN (11:00)
[2019-10-20] MEDS ORDERED: POLYETHYLENE GLYCOL 17 GM PACKET PO PRN (11:00)
[2019-10-20] MEDS ORDERED: ONDANSETRON ODT 4 MG PO PRN (11:00)
[2019-10-20] MEDS ORDERED: ACETAMINOPHEN 325 MG TABLET PO PRN (11:00)
[2019-10-20] MEDS ORDERED: DOCUSATE 100 MG CAPSULE PO PRN (11:00)
[2019-10-20] MEDS: SERTRALINE 100MG TABLET PO SCH (13:00)
[2019-10-20] MEDS: ACAMPROSATE 333 MG TABLET.DR PO SCH ×2 (16:35→20:56)
[2019-10-20] MEDS: LORazepam 1MG TABLET PO SCH ×2 (16:35→21:00)
[2019-10-20] MEDS: FOLIC ACID 1 MG TABLET PO SCH (16:35)
[2019-10-20] MEDS: NICOTINE 21 MG/24 HR PATCH.TD24 TD SCH (16:36)
[2019-10-20] MEDS: THIAMINE 100MG TABLET PO SCH (16:36)
[2019-10-20 19:50] VITALS: BP 132/83
[2019-10-20] MEDS: QUETIAPINE 100MG TABLET PO SCH (20:56)
[2019-10-21] MEDS: LORazepam 1MG TABLET PO SCH ×2 (03:54→08:25)
[2019-10-21 05:21] LABS: MICROSCOPIC INDICATED
[2019-10-21 07:00] VITALS: BP 122/77
[2019-10-21] MEDS: FOLIC ACID 1 MG TABLET PO SCH (08:25)
[2019-10-21] MEDS: SERTRALINE 100MG TABLET PO SCH (08:25)
[2019-10-21] MEDS: DISULFIRAM 250 MG TABLET PO SCH (08:25)
[2019-10-21] MEDS: THIAMINE 100MG TABLET PO SCH (08:25)
[2019-10-21] MEDS: ACAMPROSATE 333 MG TABLET.DR PO SCH ×3 (08:26→19:30)
[2019-10-21 09:40] LABS: CHOL/HDL RATIO 3.6; FREE T4 (FREE THYROXINE) 1.05 ng/dL (0.76-1.46); LDL/HDL RATIO 1.9 (0.5-3.0)
[2019-10-21 15:03] VITALS: BP 115/77
[2019-10-21] MEDS: NICOTINE 21 MG/24 HR PATCH.TD24 TD SCH (15:59)
[2019-10-21] MEDS: LORazepam 1MG TABLET PO PRN ×2 (16:00→19:30)
[2019-10-21] MEDS: QUETIAPINE 100MG TABLET PO SCH (19:30)
[2019-10-21 19:35] VITALS: BP 102/68
[2019-10-22 07:28] VITALS: BP 108/70
[2019-10-22] MEDS: DISULFIRAM 250 MG TABLET PO SCH (08:32)
[2019-10-22] MEDS: ACAMPROSATE 333 MG TABLET.DR PO SCH ×3 (08:32→19:58)
[2019-10-22] MEDS: LORazepam 1MG TABLET PO PRN ×2 (08:33→19:59)
[2019-10-22] MEDS: FOLIC ACID 1 MG TABLET PO SCH (08:33)
[2019-10-22] MEDS: SERTRALINE 100MG TABLET PO SCH (08:33)
[2019-10-22] MEDS: THIAMINE 100MG TABLET PO SCH (08:33)
[2019-10-22] MEDS: NICOTINE 21 MG/24 HR PATCH.TD24 TD SCH (13:15)
[2019-10-22 19:49] VITALS: BP 114/86
[2019-10-22] MEDS: QUETIAPINE 100MG TABLET PO SCH (19:59)
[2019-10-23 06:59] VITALS: BP 103/67
[2019-10-23] MEDS: FOLIC ACID 1 MG TABLET PO SCH (08:43)
[2019-10-23] MEDS: THIAMINE 100MG TABLET PO SCH (08:43)
[2019-10-23] MEDS: SERTRALINE 100MG TABLET PO SCH (08:43)
[2019-10-23] MEDS: DISULFIRAM 250 MG TABLET PO SCH (08:43)
[2019-10-23] MEDS: LORazepam 1MG TABLET PO PRN ×2 (08:43→20:49)
[2019-10-23] MEDS: ACAMPROSATE 333 MG TABLET.DR PO SCH ×3 (08:44→20:49)
[2019-10-23] MEDS: NICOTINE 21 MG/24 HR PATCH.TD24 TD SCH (13:15)
[2019-10-23 19:07] VITALS: BP 120/85
[2019-10-23] MEDS: QUETIAPINE 100MG TABLET PO SCH (20:49)
[2019-10-24 07:15] VITALS: BP 131/86
[2019-10-24] MEDS: FOLIC ACID 1 MG TABLET PO SCH (08:24)
[2019-10-24] MEDS: ACAMPROSATE 333 MG TABLET.DR PO SCH (08:24)
[2019-10-24] MEDS: THIAMINE 100MG TABLET PO SCH (08:24)
[2019-10-24] MEDS: DISULFIRAM 250 MG TABLET PO SCH (08:24)
[2019-10-24] MEDS: SERTRALINE 100MG TABLET PO SCH (08:24)
[2019-10-24] MEDS ORDERED: DISU250T2 PO (09:11)
[2019-10-24] MEDS ORDERED: SERT100T32 PO (09:11)
[2019-10-24] MEDS ORDERED: NICO-487 TD (09:11)
[2019-10-24] MEDS ORDERED: QUET100T PO (09:11)
[2019-10-24] MEDS ORDERED: ACAM333T7 PO (09:11)
== END 2019-10-24 09:30 | disposition home or self-care (01) | DRG 753 ==
LOC: 3E 09:00
PROVIDERS: ADMIT Psychiatry & Neurology Psychosomatic Medicine; ATTEND Psychiatry & Neurology Psychosomatic Medicine
DX: F31.30 Bipolar disorder, current episode depressed, mild or moderate severity, unspecified (principal); F17.210 Nicotine dependence, cigarettes, uncomplicated; R45.851 Suicidal ideations; E66.9 Obesity, unspecified; B19.20 Unspecified viral hepatitis C without hepatic coma; F10.21 Alcohol dependence, in remission; F15.20 Other stimulant dependence, uncomplicated; Y90.4 Blood alcohol level of 80-99 mg/100 ml; Z79.899 Other long term (current) drug therapy; Z68.32 Body mass index [BMI] 32.0-32.9, adult
CPT/HCPCS: 36415; 80061; 81001; 82140; 84439; 84443; 87086; 93005

== ENCOUNTER 2019-11-19 22:17 | Emergency (ER) | payer MEDICAID ==
[~2019-11-19] VITALS: Ht 180.3 cm; Wt 108.8 kg
[~2019-11-19 22:17] MED LIST changes: +DISU250T2 PO
[2019-11-19 23:06] LABS: BASOPHILS % (AUTO) 1 % (0-1); EOSINOPHILS % (AUTO) 1 % (1-7); LYMPHOCYTES % (AUTO) 14 % (22-44); MEAN CORPUSCULAR HEMOGLOBIN 32.6 pg (27.5-34.5); MEAN PLATELET VOLUME 10.6 fL (7.4-10.4); MONOCYTES % (AUTO) 10 % (2-9); NEUTROPHILS % (AUTO) 75 % (42-75); PLATELET COUNT 174 x10^3/uL (130-400); RED BLOOD COUNT 4.78 x10^6/uL (4.38-5.82); RED CELL DISTRIBUTION WIDTH 15.2 % (9.4-14.8)
[2019-11-19 23:07] LABS: MD NO
[2019-11-19 23:38] LABS: ALANINE AMINOTRANSFERASE 20 U/L (12-78); ALBUMIN 3.1 g/dL (3.4-5.0); ANION GAP 6 mmol/L (5-15); CALCIUM 7.8 mg/dL (8.5-10.1); CHLORIDE 106 mmol/L (98-107); CREATININE 0.78 mg/dL (0.7-1.3); SALICYLATE LEVEL 2.9 mg/dL (2.8-20.0)
[2019-11-19 23:41] LABS: ALKALINE PHOSPHATASE 74 U/L (45-117); BILIRUBIN,TOTAL 0.4 mg/dL (0.2-1.0); TOTAL PROTEIN 7.1 g/dL (6.4-8.2)
[2019-11-20 01:46] LABS: AMPHETAMINE SCREEN, URINE Positive (Negative); BARBITURATE SCREEN, URINE Negative (Negative); BENZODIAZEPINE SCREEN, URINE Positive (Negative); CANNABINOID SCREEN, URINE Negative (Negative); COCAINE SCREEN, URINE Negative (Negative); METHADONE SCREEN, URINE Negative (Negative); OPIATE SCREEN, URINE Negative (Negative)
--- NOTE | 2019-11-20 02:09 | NUR ---
[facility] accepts. Accepting doctor is Dr. Singer. [address].
[2019-11-20 03:08] VITALS: BP 115/70
--- NOTE | 2019-11-20 03:23 | NUR ---
Report given to KELBY Morton at [address] [place] [address].
== END 2019-11-20 04:00 ==
LOC: ED 22:38
DX: R45.851 Suicidal ideations (principal); F32.9 Major depressive disorder, single episode, unspecified; F17.200 Nicotine dependence, unspecified, uncomplicated
CPT/HCPCS: 36415; 80053; 80307; 85025; 99285

== ENCOUNTER 2019-11-20 02:35 | Inpatient (IN) | payer MEDICAID ==
[~2019-11-20] VITALS: Ht 180.3 cm; Wt 104.4 kg
[2019-11-20] MEDS ORDERED: ONDANSETRON ODT 4 MG PO PRN (03:00)
[2019-11-20] MEDS ORDERED: ACETAMINOPHEN 325 MG TABLET PO PRN (03:00)
[2019-11-20] MEDS ORDERED: BISACODYL 10 MG SUPP PR PRN (03:00)
[2019-11-20] MEDS ORDERED: DOCUSATE 100 MG CAPSULE PO PRN (03:00)
[2019-11-20] MEDS ORDERED: POLYETHYLENE GLYCOL 17 GM PACKET PO PRN (03:00)
[2019-11-20] MEDS ORDERED: NICOTINE 21 MG/24 HR PATCH.TD24 TD SCH (03:00)
[2019-11-20] MEDS ORDERED: LORazepam 0.5MG TABLET PO PRN (03:30)
[2019-11-20 04:13] VITALS: BP 115/70
[2019-11-20] MEDS ORDERED: PLEASE ENTER HEIGHT AND WEIGHT MC SCH (04:30)
[2019-11-20 04:44] VITALS: BP 115/70
[2019-11-20 05:34] LABS: MICROSCOPIC NOT IND
[2019-11-20 06:46] LABS: FREE T4 (FREE THYROXINE) 1.09 ng/dL (0.76-1.46)
[2019-11-20 07:26] VITALS: BP 121/70
[2019-11-20] MEDS: SERTRALINE 100MG TABLET PO SCH (08:23)
[2019-11-20] MEDS: DISULFIRAM 250 MG TABLET PO SCH (08:23)
[2019-11-20] MEDS: ACAMPROSATE 333 MG TABLET.DR PO SCH ×3 (08:23→21:12)
[2019-11-20] MEDS: NICOTINE 21 MG/24 HR PATCH.TD24 TD SCH (08:24)
[2019-11-20] MEDS: TOPIRAMATE 25 MG TABLET PO SCH ×2 (08:24→17:04)
[2019-11-20 18:53] VITALS: BP 131/78
[2019-11-20] MEDS: QUETIAPINE 100MG TABLET PO SCH (21:12)
[2019-11-21 07:21] VITALS: BP 107/67
[2019-11-21] MEDS: ACAMPROSATE 333 MG TABLET.DR PO SCH ×3 (07:54→19:50)
[2019-11-21] MEDS: NICOTINE 21 MG/24 HR PATCH.TD24 TD SCH (07:55)
[2019-11-21] MEDS: SERTRALINE 100MG TABLET PO SCH (07:55)
[2019-11-21] MEDS: TOPIRAMATE 25 MG TABLET PO SCH ×2 (07:55→16:02)
[2019-11-21] MEDS: DISULFIRAM 250 MG TABLET PO SCH (07:55)
[2019-11-21 19:08] VITALS: BP 131/85
[2019-11-21] MEDS: QUETIAPINE 100MG TABLET PO SCH (19:51)
[2019-11-22 07:00] VITALS: BP 131/87
[2019-11-22] MEDS: ACAMPROSATE 333 MG TABLET.DR PO SCH ×3 (08:27→20:21)
[2019-11-22] MEDS: TOPIRAMATE 25 MG TABLET PO SCH ×2 (08:27→16:13)
[2019-11-22] MEDS: DISULFIRAM 250 MG TABLET PO SCH (08:27)
[2019-11-22] MEDS: NICOTINE 21 MG/24 HR PATCH.TD24 TD SCH (08:28)
[2019-11-22] MEDS: SERTRALINE 100MG TABLET PO SCH (08:43)
[2019-11-22 19:26] VITALS: BP 117/68
[2019-11-22] MEDS: QUETIAPINE 100MG TABLET PO SCH (20:21)
[2019-11-23 07:05] VITALS: BP 124/80
[2019-11-23] MEDS: SERTRALINE 100MG TABLET PO SCH (08:13)
[2019-11-23] MEDS: TOPIRAMATE 25 MG TABLET PO SCH ×2 (08:13→16:12)
[2019-11-23] MEDS: DISULFIRAM 250 MG TABLET PO SCH (08:13)
[2019-11-23] MEDS: NICOTINE 21 MG/24 HR PATCH.TD24 TD SCH (08:13)
[2019-11-23] MEDS: ACAMPROSATE 333 MG TABLET.DR PO SCH ×3 (08:13→20:18)
[2019-11-23 19:06] VITALS: BP 119/83
[2019-11-23] MEDS: QUETIAPINE 100MG TABLET PO SCH (20:18)
[2019-11-23] MEDS ORDERED: NEOSPORIN OINT. PKT 1 PACKET TP PRN (21:30)
[2019-11-24 07:27] VITALS: BP 147/86
[2019-11-24] MEDS: SERTRALINE 100MG TABLET PO SCH (08:53)
[2019-11-24] MEDS: TOPIRAMATE 25 MG TABLET PO SCH ×2 (08:53→16:31)
[2019-11-24] MEDS: NICOTINE 21 MG/24 HR PATCH.TD24 TD SCH (08:53)
[2019-11-24] MEDS: DISULFIRAM 250 MG TABLET PO SCH (08:53)
[2019-11-24] MEDS: ACAMPROSATE 333 MG TABLET.DR PO SCH ×3 (09:00→20:23)
[2019-11-24] MEDS ORDERED: DISU250T2 PO (13:18)
[2019-11-24] MEDS ORDERED: TOPI25TA32 PO (13:18)
[2019-11-24] MEDS ORDERED: ACAM333T7 PO (13:18)
[2019-11-24] MEDS ORDERED: NICO-487 TD (13:18)
[2019-11-24] MEDS ORDERED: QUET100T PO (13:18)
[2019-11-24] MEDS ORDERED: SERT100T32 PO (13:18)
[2019-11-24 19:33] VITALS: BP 113/77
[2019-11-24] MEDS: QUETIAPINE 100MG TABLET PO SCH (20:23)
[2019-11-25 07:06] VITALS: BP 119/81
[2019-11-25] MEDS: NICOTINE 21 MG/24 HR PATCH.TD24 TD SCH (08:31)
[2019-11-25] MEDS: DISULFIRAM 250 MG TABLET PO SCH (08:31)
[2019-11-25] MEDS: ACAMPROSATE 333 MG TABLET.DR PO SCH ×3 (08:31→20:21)
[2019-11-25] MEDS: TOPIRAMATE 25 MG TABLET PO SCH ×2 (08:31→16:01)
[2019-11-25] MEDS: SERTRALINE 100MG TABLET PO SCH (08:31)
[2019-11-25 20:02] VITALS: BP 112/73
[2019-11-25] MEDS: QUETIAPINE 100MG TABLET PO SCH (20:21)
[2019-11-26 07:11] VITALS: BP 107/69
[2019-11-26] MEDS: ACAMPROSATE 333 MG TABLET.DR PO SCH (08:38)
[2019-11-26] MEDS: TOPIRAMATE 25 MG TABLET PO SCH (08:38)
[2019-11-26] MEDS: NICOTINE 21 MG/24 HR PATCH.TD24 TD SCH (08:38)
[2019-11-26] MEDS: DISULFIRAM 250 MG TABLET PO SCH (08:38)
[2019-11-26] MEDS: SERTRALINE 100MG TABLET PO SCH (08:38)
== END 2019-11-26 13:30 | disposition home or self-care (01) | DRG 753 ==
LOC: 3E 04:09
PROVIDERS: ADMIT Psychiatry & Neurology Psychosomatic Medicine; ATTEND Psychiatry & Neurology Psychosomatic Medicine
DX: F31.30 Bipolar disorder, current episode depressed, mild or moderate severity, unspecified (principal); B19.20 Unspecified viral hepatitis C without hepatic coma; E66.9 Obesity, unspecified; F41.9 Anxiety disorder, unspecified; G47.00 Insomnia, unspecified; R45.851 Suicidal ideations; F15.10 Other stimulant abuse, uncomplicated; F17.200 Nicotine dependence, unspecified, uncomplicated; F10.239 Alcohol dependence with withdrawal, unspecified; Z68.32 Body mass index [BMI] 32.0-32.9, adult; Z79.899 Other long term (current) drug therapy
CPT/HCPCS: 36415; 81003; 82607; 84439; 84443; 87426

== ENCOUNTER 2020-07-02 19:36 | Observation (INO) | payer MEDICAID ==
[~2020-07-02] VITALS: Ht 177.8 cm; Wt 104.0 kg
[~2020-07-02 19:36] MED LIST changes: -NICO-487 TD; +NICO-587 TD
[2020-07-02 20:28] LABS: BASOPHILS % (AUTO) 1 % (0-1); EOSINOPHILS % (AUTO) 1 % (1-7); LYMPHOCYTES % (AUTO) 45 % (22-44); MEAN CORPUSCULAR HEMOGLOBIN 35.5 pg (27.5-34.5); MEAN CORPUSCULAR HGB CONC 35.1 g/dL (33.2-36.2); MEAN PLATELET VOLUME 10.1 fL (7.4-10.4); MONOCYTES % (AUTO) 9 % (2-9); NEUTROPHILS % (AUTO) 45 % (42-75); PLATELET COUNT 135 x10^3/uL (130-400); RED BLOOD COUNT 4.51 x10^6/uL (4.38-5.82); RED CELL DISTRIBUTION WIDTH 14.2 % (9.4-14.8)
[2020-07-02 20:29] LABS: MD NO
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
[2020-07-02 20:39] LABS: ALBUMIN 3.3 g/dL (3.4-5.0); ANION GAP 10 mmol/L (5-15); CALCIUM 7.4 mg/dL (8.5-10.1); CHLORIDE 107 mmol/L (98-107)
[2020-07-02 20:50] LABS: ALANINE AMINOTRANSFERASE 62 U/L (12-78); ALKALINE PHOSPHATASE 102 U/L (45-117); BILIRUBIN,TOTAL 0.6 mg/dL (0.2-1.0); CREATININE 0.95 mg/dL (0.7-1.3); TOTAL PROTEIN 7.2 g/dL (6.4-8.2)
[2020-07-02 20:53] LABS: SALICYLATE LEVEL < 1.7 mg/dL (2.8-20.0)
--- NOTE | 2020-07-02 22:19 | NUR ---
UA COLLECTED AND SENT
[2020-07-02 22:37] LABS: AMPHETAMINE SCREEN, URINE Positive (Negative); BARBITURATE SCREEN, URINE Negative (Negative); BENZODIAZEPINE SCREEN, URINE Negative (Negative); CANNABINOID SCREEN, URINE Negative (Negative); COCAINE SCREEN, URINE Negative (Negative); METHADONE SCREEN, URINE Negative (Negative); OPIATE SCREEN, URINE Negative (Negative)
--- NOTE | 2020-07-02 23:15 | NUR ---
PT RESTING IN BED, PT RROM SI SECURE, SITTER AT PT DOOR. PT DENIED ANY CURRENT WANTS OR NEEDS. PT UNLABORED BREATHING WITH EQUAL BREATHS.
--- NOTE | 2020-07-03 01:02 | NUR ---
RECEIVED REPORT FROM RN. PT CALM AND SLEEPING AT THIS TIME. NO ACUTE DISTRESS. SITTER OUTSIDE OF ROOM AND EYES ON PT.
--- NOTE | 2020-07-03 01:23 | NUR ---
PT NEEDS TO METABOLIZE THE ETOH BEFORE HE CAN BE RE EVALUATED FOR SI BEHAVIOR.
--- NOTE | 2020-07-03 02:35 | NUR ---
PTS MORNING DIET TRAY ORDERED.
--- NOTE | 2020-07-03 04:40 | NUR ---
ATTEMPTING TO WAKE PT UP, AND HE IS GROANING AND REFUSING AT THIS TIME. PT STILL WITH SLURRED AND INCOMPREHENSIBLE SPEECH. REMAINS ON O2 SAT PROBE, 95%. AWARE.
--- NOTE | 2020-07-03 04:59 | NUR ---
PT WOKE UP EASILY, AND ASKED FOR WATER. WATER PROVIDED AND PT ASKED TO USE THE BREATHALYZER TO UPDATE HIS INTOXICATION LEVEL. IT WAS 0.16 MD AWARE.
--- NOTE | 2020-07-03 06:09 | NUR ---
PT SLEEPING, BUT EASILY AROUSABLE, AND AWARE OF WHERE HE'S AT. A&OX4. PT SAYS HE STILL FEELS A LITTLE GROGGY. AWARE OF PTS STATUS.
--- NOTE | 2020-07-03 06:52 | NUR ---
REPORT AND CARE TO MARION LAMA.
[2020-07-03] MEDS ORDERED: LORazepam 1MG TABLET ONE ×2 (07:51→12:26)
[2020-07-03] MEDS ORDERED: LORazepam 1MG TABLET PO ONE ×2 (08:00→12:30)
--- NOTE | 2020-07-03 09:23 | NUR ---
PSYCH STOCK PREPARATION SUPERVISOR AWARE OF PT CONSULT
--- NOTE | 2020-07-03 10:29 | NUR ---
Pt denied needing medication for withdraws at this time.
[2020-07-03 11:33] VITALS: BP 140/90
--- NOTE | 2020-07-03 11:59 | NUR ---
MD Macias made aware of VS including tachy, and CIWA score. Per MD Macias, Rosmery GAME BREEDING FARM MANAGER to see and then medication plan to be discussed.
--- NOTE | 2020-07-03 12:17 | NUR ---
Johanna psych METAL WASHING MACHINE OPERATOR at bedside for eval.
--- NOTE | 2020-07-03 12:23 | NUR ---
Pt denied food until this point. Lunch tray ordered now.
[2020-07-03] MEDS ORDERED: LORazepam 1MG TABLET PO PRN ×2 (12:30→14:00)
--- NOTE | 2020-07-03 13:36 | NUR ---
Pt's belongings reviewed with pt, placed back in psych locker in 1 labled bag.
--- NOTE | 2020-07-03 13:37 | NUR ---
Pt has been placed on L2K
[2020-07-03] MEDS ORDERED: ACETAMINOPHEN 325 MG TABLET PO PRN (14:30)
[2020-07-03] MEDS ORDERED: ONDANSETRON ODT 4 MG PO PRN (14:30)
[2020-07-03] MEDS ORDERED: NICOTINE 21 MG/24 HR PATCH.TD24 TD SCH (14:30)
[2020-07-03] MEDS ORDERED: DOCUSATE 100 MG CAPSULE PO PRN (14:30)
[2020-07-03] MEDS ORDERED: BISACODYL 10 MG SUPP PR PRN (14:30)
[2020-07-03] MEDS ORDERED: POLYETHYLENE GLYCOL 17 GM PACKET PO PRN (14:30)
[2020-07-03] MEDS ORDERED: LORazepam 1MG TABLET PO SCH (16:00)
[2020-07-04] MEDS ORDERED: THIAMINE 100MG TABLET PO SCH (09:00)
[2020-07-04] MEDS ORDERED: FOLIC ACID 1 MG TABLET PO SCH (09:00)
== END 2020-07-03 15:52 | disposition home or self-care (01) ==
LOC: ED 22:47 → EDIP 23:28 → 3E 07-03 13:57
PROVIDERS: ADMIT Emergency Medicine; ATTEND Emergency Medicine
DX: F31.32 Bipolar disorder, current episode depressed, moderate (principal); Z20.822 Contact with and (suspected) exposure to COVID-19; F10.220 Alcohol dependence with intoxication, uncomplicated; R45.851 Suicidal ideations; F17.210 Nicotine dependence, cigarettes, uncomplicated; E66.9 Obesity, unspecified; F15.10 Other stimulant abuse, uncomplicated; F41.9 Anxiety disorder, unspecified; Y90.8 Blood alcohol level of 240 mg/100 ml or more; Z56.0 Unemployment, unspecified; Z59.0 Homelessness; Z91.5 Personal history of self-harm; Z79.899 Other long term (current) drug therapy
CPT/HCPCS: 36415; 71045; 80053; 80299; 80307; 80320; 80329; 85025; 87426; 93005; 99284; G0378; G0480

== ENCOUNTER 2020-07-03 15:51 | Inpatient (IN) | payer MEDICAID ==
[2020-07-03] MEDS ORDERED: CHLORDIAZEPOXIDE 10 MG CAPSULE PO SCH (16:30)
[2020-07-03] MEDS ORDERED: ACETAMINOPHEN 325 MG TABLET PO PRN (16:30)
[2020-07-03] MEDS ORDERED: DOCUSATE 100 MG CAPSULE PO PRN (16:30)
[2020-07-03] MEDS ORDERED: ONDANSETRON 2MG/ML, 2ML IVPush PRN (16:30)
[2020-07-03] MEDS ORDERED: POLYETHYLENE GLYCOL 17 GM PACKET PO PRN (16:30)
[2020-07-03] MEDS ORDERED: LORazepam 0.5MG TABLET PO PRN (16:30)
[2020-07-03] MEDS ORDERED: LORazepam 2 MG/ML, 1ML IV PRN ×3 (16:30)
[2020-07-03] MEDS ORDERED: BISACODYL 10 MG SUPP PR PRN (16:30)
[2020-07-03] MEDS ORDERED: ENALAPRILAT 1.25 MG/ML, 2ML IVPush PRN (16:30)
[2020-07-03] MEDS ORDERED: LABETALOL 5MG/ML, 20ML IVPush PRN (16:30)
[2020-07-03] MEDS ORDERED: D5%-0.45NACL+KCL 20MEQ 1,000 ML IV SCH (16:30)
[2020-07-03] MEDS ORDERED: CHLORDIAZEPOXIDE 25 MG CAPSULE PO SCH (16:30)
[2020-07-03] MEDS ORDERED: ONDANSETRON ODT 4 MG PO PRN (16:30)
[2020-07-03] MEDS ORDERED: LORazepam 1MG TABLET PO PRN ×3 (16:30)
[2020-07-03] MEDS ORDERED: LORazepam 1MG TABLET ONE (16:51)
[2020-07-03] MEDS ORDERED: NICOTINE 21 MG/24 HR PATCH.TD24 ONE (16:51)
[2020-07-03] MEDS ORDERED: LORazepam 1MG TABLET PO ONE (17:00)
[2020-07-03] MEDS ORDERED: MAGNESIUM SULFATE 1 GM, FOLIC ACID 1 MG, THIAMINE 200 MG, MVI ADULT 10 ML in D5%-0.9% N... IV SCH (17:30)
[2020-07-03] MEDS ORDERED: ENOXAPARIN 40 MG/0.4 ML SQ SCH (18:00)
== END 2020-07-03 17:51 | disposition home or self-care (01) | DRG 775 ==
LOC: 3E 15:51
PROVIDERS: ADMIT Psychiatry & Neurology Psychosomatic Medicine; ATTEND Psychiatry & Neurology Psychosomatic Medicine
DX: F10.239 Alcohol dependence with withdrawal, unspecified (principal); R45.851 Suicidal ideations; F15.10 Other stimulant abuse, uncomplicated; F17.210 Nicotine dependence, cigarettes, uncomplicated; B19.20 Unspecified viral hepatitis C without hepatic coma; F32.9 Major depressive disorder, single episode, unspecified; Z59.0 Homelessness
CPT/HCPCS: 76705

== ENCOUNTER 2020-07-03 17:29 | Inpatient (IN) | payer MEDICAID ==
[~2020-07-03] VITALS: Ht 180.3 cm; Wt 105.2 kg
[2020-07-03 18:22] VITALS: BP 149/103
[2020-07-03] MEDS ORDERED: BISACODYL 10 MG SUPP PR PRN (18:30)
[2020-07-03] MEDS ORDERED: POLYETHYLENE GLYCOL 17 GM PACKET PO PRN (18:30)
[2020-07-03] MEDS ORDERED: LORazepam 0.5MG TABLET PO PRN (18:30)
[2020-07-03] MEDS ORDERED: DOCUSATE 100 MG CAPSULE PO PRN (18:30)
[2020-07-03] MEDS ORDERED: ACETAMINOPHEN 325 MG TABLET PO PRN (18:30)
[2020-07-03] MEDS ORDERED: ONDANSETRON 4 MG TABLET PO PRN (18:30)
[2020-07-03] MEDS ORDERED: ENALAPRILAT 1.25 MG/ML, 2ML IV PRN (18:30)
[2020-07-03] MEDS ORDERED: CHLORDIAZEPOXIDE 10 MG CAPSULE PO SCH (18:30)
[2020-07-03] MEDS ORDERED: LORazepam 1MG TABLET PO PRN ×2 (18:30)
[2020-07-03] MEDS ORDERED: LORazepam 2 MG/ML, 1ML IV PRN ×2 (18:30)
[2020-07-03] MEDS ORDERED: LABETALOL 5MG/ML, 20ML IV PRN (18:30)
[2020-07-03] MEDS ORDERED: ENOXAPARIN 40 MG/0.4 ML ONE (19:04)
[2020-07-03] MEDS ORDERED: CHLORDIAZEPOXIDE 25 MG CAPSULE ONE (19:04)
[2020-07-03] MEDS ORDERED: ONDANSETRON 2MG/ML, 2ML ONE (19:04)
[2020-07-03] MEDS: ONDANSETRON 2MG/ML, 2ML IV PRN (19:12)
[2020-07-03] MEDS: ENOXAPARIN 40 MG/0.4 ML SQ SCH (19:12)
[2020-07-03] MEDS: CHLORDIAZEPOXIDE 25 MG CAPSULE PO SCH (19:12)
[2020-07-03] MEDS: LORazepam 2 MG/ML, 1ML IV PRN (19:20)
[2020-07-03 19:46] VITALS: BP 149/109
[2020-07-03] MEDS ORDERED: NICOTINE 14MG/24 HR PATCH.TD24 TD SCH (21:00)
[2020-07-03] MEDS: LORazepam 1MG TABLET PO PRN (21:51)
[2020-07-03] MEDS: MELATONIN 5 MG TABLET PO PRN (23:54)
[2020-07-04 00:16] VITALS: BP 143/95
[2020-07-04] MEDS: CHLORDIAZEPOXIDE 25 MG CAPSULE PO SCH ×3 (00:24→13:09)
[2020-07-04] MEDS: LORazepam 2 MG/ML, 1ML IV PRN (01:44)
[2020-07-04] MEDS: LORazepam 1MG TABLET PO PRN ×2 (04:04→06:27)
[2020-07-04 05:19] LABS: ALANINE AMINOTRANSFERASE 63 U/L (12-78); ALBUMIN 3.2 g/dL (3.4-5.0); ANION GAP 9 mmol/L (5-15); CALCIUM 7.9 mg/dL (8.5-10.1); CHLORIDE 106 mmol/L (98-107); CREATININE 0.88 mg/dL (0.7-1.3)
[2020-07-04 05:20] LABS: BASOPHILS % (AUTO) 2 % (0-1); EOSINOPHILS % (AUTO) 1 % (1-7); LYMPHOCYTES % (AUTO) 21 % (22-44); MEAN CORPUSCULAR HEMOGLOBIN 35.3 pg (27.5-34.5); MEAN CORPUSCULAR HGB CONC 34.2 g/dL (33.2-36.2); MEAN PLATELET VOLUME 10.7 fL (7.4-10.4); MONOCYTES % (AUTO) 9 % (2-9); NEUTROPHILS % (AUTO) 67 % (42-75); PLATELET COUNT 94 x10^3/uL (130-400); RED BLOOD COUNT 4.35 x10^6/uL (4.38-5.82); RED CELL DISTRIBUTION WIDTH 13.9 % (9.4-14.8)
[2020-07-04 05:21] LABS: ALKALINE PHOSPHATASE 101 U/L (45-117); BILIRUBIN,TOTAL 1.5 mg/dL (0.2-1.0); TOTAL PROTEIN 7.2 g/dL (6.4-8.2)
[2020-07-04 05:23] LABS: MD NO
[2020-07-04] MEDS: NICOTINE 21 MG/24 HR PATCH.TD24 TD SCH (07:00)
[2020-07-04 07:14] VITALS: BP 131/89
[2020-07-04] MEDS ORDERED: ENALAPRILAT 1.25 MG/ML, 2ML IV PRN (08:00)
[2020-07-04] MEDS ORDERED: HALOPERIDOL 5 MG/ML ONE (08:06)
[2020-07-04] MEDS ORDERED: HALOPERIDOL 5 MG/ML IV ONE (08:30)
[2020-07-04 12:49] VITALS: BP 113/68
[2020-07-04] MEDS: FOLIC ACID IV SCH (13:10)
[2020-07-04] MEDS: MVI ADULT IV SCH (13:10)
[2020-07-04] MEDS: THIAMINE IV SCH (13:10)
[2020-07-04] MEDS: [UNRECOGNIZED DRUG - OTHER] IV SCH (13:10)
[2020-07-04] MEDS: MAGNESIUM SULFATE IV SCH (13:10)
[2020-07-04] MEDS ORDERED: QUETIAPINE 25MG TABLET PO PRN (15:30)
[2020-07-04] MEDS: SERTRALINE 50MG TABLET PO SCH (16:03)
[2020-07-04 18:46] VITALS: BP 144/92
[2020-07-04] MEDS: QUETIAPINE 100MG TABLET PO SCH (20:57)
[2020-07-04] MEDS: ENOXAPARIN 40 MG/0.4 ML SQ SCH (20:58)
[2020-07-04] MEDS: CHLORDIAZEPOXIDE 10 MG CAPSULE PO SCH (21:13)
[2020-07-05 00:52] VITALS: BP 136/91
[2020-07-05] MEDS: CHLORDIAZEPOXIDE 10 MG CAPSULE PO SCH ×3 (01:39→12:35)
[2020-07-05] MEDS: NICOTINE 21 MG/24 HR PATCH.TD24 TD SCH ×2 (05:39→08:16)
[2020-07-05 06:33] LABS: ALANINE AMINOTRANSFERASE 42 U/L (12-78); ALBUMIN 2.8 g/dL (3.4-5.0); ANION GAP 4 mmol/L (5-15); CALCIUM 7.7 mg/dL (8.5-10.1); CHLORIDE 109 mmol/L (98-107)
[2020-07-05 06:35] LABS: ALKALINE PHOSPHATASE 78 U/L (45-117); TOTAL PROTEIN 6.1 g/dL (6.4-8.2)
[2020-07-05 07:23] VITALS: BP 115/75
[2020-07-05] MEDS: SERTRALINE 50MG TABLET PO SCH (08:16)
[2020-07-05] MEDS: THIAMINE IV SCH (09:29)
[2020-07-05] MEDS: MAGNESIUM SULFATE IV SCH (09:29)
[2020-07-05] MEDS: FOLIC ACID IV SCH (09:29)
[2020-07-05] MEDS: MVI ADULT IV SCH (09:29)
[2020-07-05] MEDS: [UNRECOGNIZED DRUG - OTHER] IV SCH (09:29)
[2020-07-05 15:03] VITALS: BP 142/90
[2020-07-05] MEDS: ENOXAPARIN 40 MG/0.4 ML SQ SCH (17:42)
[2020-07-05 18:30] VITALS: BP 118/72
[2020-07-05] MEDS: ONDANSETRON 2MG/ML, 2ML IV PRN (20:17)
[2020-07-05] MEDS: LORazepam 1MG TABLET PO PRN (20:17)
[2020-07-05] MEDS: CHLORDIAZEPOXIDE 25 MG CAPSULE PO SCH (21:43)
[2020-07-05] MEDS: MELATONIN 5 MG TABLET PO PRN (21:43)
[2020-07-05] MEDS: QUETIAPINE 100MG TABLET PO SCH (21:43)
[2020-07-06 00:05] VITALS: BP 117/70
[2020-07-06] MEDS: NICOTINE 21 MG/24 HR PATCH.TD24 TD SCH (06:05)
[2020-07-06] MEDS: CHLORDIAZEPOXIDE 25 MG CAPSULE PO SCH ×3 (06:05→21:25)
[2020-07-06 08:37] VITALS: BP 122/92
[2020-07-06] MEDS: FOLIC ACID IV SCH (09:15)
[2020-07-06] MEDS: MAGNESIUM SULFATE IV SCH (09:15)
[2020-07-06] MEDS: SERTRALINE 50MG TABLET PO SCH (09:15)
[2020-07-06] MEDS: [UNRECOGNIZED DRUG - OTHER] IV SCH (09:15)
[2020-07-06] MEDS: THIAMINE IV SCH (09:15)
[2020-07-06] MEDS: MVI ADULT IV SCH (09:15)
[2020-07-06 15:59] VITALS: BP 122/92
[2020-07-06] MEDS: ENOXAPARIN 40 MG/0.4 ML SQ SCH (17:53)
[2020-07-06 18:26] VITALS: BP 147/92
[2020-07-06] MEDS: QUETIAPINE 100MG TABLET PO SCH (20:17)
[2020-07-06] MEDS: MELATONIN 5 MG TABLET PO PRN (21:28)
[2020-07-07 00:37] VITALS: BP 108/76
[2020-07-07] MEDS: CHLORDIAZEPOXIDE 25 MG CAPSULE PO SCH (05:25)
[2020-07-07 05:55] LABS: BASOPHILS % (AUTO) 1 % (0-1); EOSINOPHILS % (AUTO) 3 % (1-7); LYMPHOCYTES % (AUTO) 31 % (22-44); MEAN CORPUSCULAR HEMOGLOBIN 35.1 pg (27.5-34.5); MEAN PLATELET VOLUME 10.5 fL (7.4-10.4); MONOCYTES % (AUTO) 10 % (2-9); NEUTROPHILS % (AUTO) 55 % (42-75); PLATELET COUNT 78 x10^3/uL (130-400); RED BLOOD COUNT 3.99 x10^6/uL (4.38-5.82); RED CELL DISTRIBUTION WIDTH 14.2 % (9.4-14.8)
[2020-07-07 06:03] LABS: ALBUMIN 2.7 g/dL (3.4-5.0); ANION GAP 4 mmol/L (5-15); CALCIUM 8.1 mg/dL (8.5-10.1); CHLORIDE 106 mmol/L (98-107)
[2020-07-07 06:07] LABS: ALANINE AMINOTRANSFERASE 35 U/L (12-78); ALKALINE PHOSPHATASE 75 U/L (45-117); BILIRUBIN,TOTAL 0.3 mg/dL (0.2-1.0); CREATININE 0.62 mg/dL (0.7-1.3); TOTAL PROTEIN 6.3 g/dL (6.4-8.2)
[2020-07-07 06:32] LABS: MD NO
[2020-07-07] MEDS: NICOTINE 21 MG/24 HR PATCH.TD24 TD SCH (08:10)
[2020-07-07] MEDS: SERTRALINE 50MG TABLET PO SCH (08:10)
[2020-07-07 08:20] VITALS: BP 138/93
[2020-07-07 12:18] VITALS: BP 142/95
[2020-07-07] MEDS ORDERED: DOCU-131 PO (13:01)
[2020-07-07] MEDS ORDERED: SERT50TA28 PO (13:01)
[2020-07-07] MEDS ORDERED: QUET100T PO (13:01)
[2020-07-07] MEDS ORDERED: LORA-446 PO (13:01)
[2020-07-07] MEDS ORDERED: QUET25TA7 PO (13:01)
[2020-07-07] MEDS ORDERED: MELA5TAB14 PO (13:01)
== END 2020-07-07 18:00 | DRG 251 ==
LOC: 4EST 17:50
PROVIDERS: ADMIT Psychiatry & Neurology Psychosomatic Medicine; ATTEND Psychiatry & Neurology Psychosomatic Medicine
DX: R10.9 Unspecified abdominal pain (principal); F10.231 Alcohol dependence with withdrawal delirium; R45.851 Suicidal ideations; E66.9 Obesity, unspecified; F15.10 Other stimulant abuse, uncomplicated; F17.210 Nicotine dependence, cigarettes, uncomplicated; F31.30 Bipolar disorder, current episode depressed, mild or moderate severity, unspecified; Z56.0 Unemployment, unspecified; Z91.5 Personal history of self-harm; Z79.899 Other long term (current) drug therapy; Z68.32 Body mass index [BMI] 32.0-32.9, adult
CPT/HCPCS: 36415; 80053; 83735; 84100; 85025; G0378; J1650; J2405; J3411; J3475; J1630; J2060; J7121

== ENCOUNTER 2020-07-07 15:26 | Inpatient (IN) | payer MEDICAID ==
[~2020-07-07] VITALS: Ht 180.3 cm; Wt 108.4 kg
[~2020-07-07 15:26] MED LIST changes: +DOCU-131 PO; +LORA-446 PO; +MELA5TAB14 PO; +QUET25TA7 PO; +SERT50TA28 PO
[2020-07-07] MEDS ORDERED: DOCUSATE 100 MG CAPSULE PO PRN (17:00)
[2020-07-07] MEDS ORDERED: ACETAMINOPHEN 325 MG TABLET PO PRN (17:00)
[2020-07-07] MEDS ORDERED: POLYETHYLENE GLYCOL 17 GM PACKET PO PRN (17:00)
[2020-07-07] MEDS ORDERED: LORazepam 1MG TABLET PO PRN (17:00)
[2020-07-07] MEDS ORDERED: BISACODYL 10 MG SUPP PR PRN (17:00)
[2020-07-07 18:00] VITALS: BP 111/81
[2020-07-07] MEDS ORDERED: PLEASE ENTER HEIGHT AND WEIGHT MC SCH (18:30)
[2020-07-07 19:24] VITALS: BP 144/89
[2020-07-07] MEDS: QUETIAPINE 100MG TABLET PO SCH (21:02)
[2020-07-07 21:18] LABS: MICROSCOPIC NOT IND
[2020-07-08 06:35] LABS: FREE T4 (FREE THYROXINE) 0.65 ng/dL (0.76-1.46); LDL/HDL RATIO 1.5 (0.5-3.0)
[2020-07-08 07:45] VITALS: BP 132/84
[2020-07-08] MEDS: SERTRALINE 50MG TABLET PO SCH (10:45)
[2020-07-08] MEDS: NICOTINE 14MG/24 HR PATCH.TD24 TD SCH (10:45)
[2020-07-08] MEDS: THIAMINE 100MG TABLET PO SCH (10:46)
[2020-07-08] MEDS: FOLIC ACID 1 MG TABLET PO SCH (10:46)
[2020-07-08] MEDS: ACAMPROSATE 333 MG TABLET.DR PO SCH ×2 (17:04→20:40)
[2020-07-08 19:09] VITALS: BP 134/89
[2020-07-08] MEDS: QUETIAPINE 100MG TABLET PO SCH (20:41)
[2020-07-09 07:47] VITALS: BP 98/64
[2020-07-09] MEDS: SERTRALINE 50MG TABLET PO SCH (09:31)
[2020-07-09] MEDS: THIAMINE 100MG TABLET PO SCH (09:31)
[2020-07-09] MEDS: ACAMPROSATE 333 MG TABLET.DR PO SCH ×3 (09:31→20:29)
[2020-07-09] MEDS: FOLIC ACID 1 MG TABLET PO SCH (09:31)
[2020-07-09] MEDS: NICOTINE 14MG/24 HR PATCH.TD24 TD SCH (16:45)
[2020-07-09 19:36] VITALS: BP 113/78
[2020-07-09] MEDS: QUETIAPINE 100MG TABLET PO SCH (20:29)
[2020-07-10 08:04] VITALS: BP 102/64
[2020-07-10] MEDS: ACAMPROSATE 333 MG TABLET.DR PO SCH ×3 (08:59→20:37)
[2020-07-10] MEDS: FOLIC ACID 1 MG TABLET PO SCH (08:59)
[2020-07-10] MEDS: THIAMINE 100MG TABLET PO SCH (08:59)
[2020-07-10] MEDS: SERTRALINE 50MG TABLET PO SCH (08:59)
[2020-07-10] MEDS: NICOTINE 14MG/24 HR PATCH.TD24 TD SCH (17:10)
[2020-07-10 19:21] VITALS: BP 121/84
[2020-07-10] MEDS: QUETIAPINE 100MG TABLET PO SCH (20:37)
[2020-07-11 08:00] VITALS: BP 114/73
[2020-07-11] MEDS: ACAMPROSATE 333 MG TABLET.DR PO SCH ×3 (09:29→20:12)
[2020-07-11] MEDS: FOLIC ACID 1 MG TABLET PO SCH (09:29)
[2020-07-11] MEDS: SERTRALINE 50MG TABLET PO SCH (09:30)
[2020-07-11] MEDS: THIAMINE 100MG TABLET PO SCH (09:30)
[2020-07-11] MEDS ORDERED: NICO-587 TD (12:32)
[2020-07-11] MEDS ORDERED: QUET100T PO (12:32)
[2020-07-11] MEDS ORDERED: ACAM333T7 PO (12:32)
[2020-07-11] MEDS ORDERED: SERT100T32 PO (12:32)
[2020-07-11] MEDS: NICOTINE 14MG/24 HR PATCH.TD24 TD SCH (16:39)
[2020-07-11 19:51] VITALS: BP 108/73
[2020-07-11] MEDS: QUETIAPINE 100MG TABLET PO SCH (20:12)
[2020-07-12 07:37] VITALS: BP 100/68
[2020-07-12] MEDS: ACAMPROSATE 333 MG TABLET.DR PO SCH (08:53)
[2020-07-12] MEDS: SERTRALINE 50MG TABLET PO SCH (08:54)
[2020-07-12] MEDS: FOLIC ACID 1 MG TABLET PO SCH (08:54)
[2020-07-12] MEDS: THIAMINE 100MG TABLET PO SCH (08:54)
== END 2020-07-12 09:05 | disposition home or self-care (01) | DRG 885 ==
LOC: 3E 18:03
PROVIDERS: ADMIT Psychiatry & Neurology Psychosomatic Medicine; ATTEND Psychiatry & Neurology Psychosomatic Medicine
DX: F31.30 Bipolar disorder, current episode depressed, mild or moderate severity, unspecified (principal); B19.20 Unspecified viral hepatitis C without hepatic coma; R45.851 Suicidal ideations; F10.239 Alcohol dependence with withdrawal, unspecified; F15.20 Other stimulant dependence, uncomplicated; F17.210 Nicotine dependence, cigarettes, uncomplicated; Z86.19 Personal history of other infectious and parasitic diseases; Z56.0 Unemployment, unspecified
CPT/HCPCS: 36415; 80061; 81003; 84439; 84443; 93005

== ENCOUNTER 2020-07-26 22:12 | Emergency (ER) | payer MEDICAID ==
[~2020-07-26] VITALS: Ht 180.3 cm; Wt 116.3 kg
[2020-07-26 22:23] VITALS: BP 93/72
--- NOTE | 2020-07-26 22:42 | NUR ---
PT. TO ED WITH C/O SI. STATES "I HAD A BIG KNIFE AND IT'S A GOOD THING THEY TOOK IT AWAY BECAUSE I WAS ABOUT TO SLIT MY WRIST'S WITH IT." PT. REPORTS "I AM JUST DONE WITH EVERYTHING." STATES LIVES BETWEEN [email or web address], LOST HIS JOB ABOUT 2 WEEKS AGO AND "I AM JUST DONE WITH IT ALL." +ETOH. ALL BELONGINGS TAKEN FROM PT. BY TECH AND PLACED IN LOCKER. PT. AMBULATORY TO BR FOR URINE SAMPLE.
--- NOTE | 2020-07-26 23:00 | NUR ---
PT. IS IN SECURED ROOM WITH SITTER IN DOORWAY. SECURITY CALLED ABOUT KNIFE THAT WAS TAKEN IN TRIAGE.
--- NOTE | 2020-07-26 23:00 | NUR ---
NAIN PARIS IN TO LIZETTE PT. AND DISCUSS POC. URINE SAMPLE COLLECTED AND SENT TO LAB.
--- NOTE | 2020-07-26 23:07 | NUR ---
SECURITY HAS PT. KNIFE.
[2020-07-26 23:19] LABS: AMPHETAMINE SCREEN, URINE Negative (Negative); BARBITURATE SCREEN, URINE Negative (Negative); BENZODIAZEPINE SCREEN, URINE Positive (Negative); CANNABINOID SCREEN, URINE Negative (Negative); COCAINE SCREEN, URINE Negative (Negative); METHADONE SCREEN, URINE Negative (Negative); OPIATE SCREEN, URINE Negative (Negative)
[2020-07-26 23:43] LABS: BASOPHILS % (AUTO) 0 % (0-1); EOSINOPHILS % (AUTO) 2 % (1-7); LYMPHOCYTES % (AUTO) 33 % (22-44); MEAN CORPUSCULAR HEMOGLOBIN 35.2 pg (27.5-34.5); MEAN CORPUSCULAR HGB CONC 33.7 g/dL (33.2-36.2); MEAN PLATELET VOLUME 10.8 fL (7.4-10.4); MONOCYTES % (AUTO) 9 % (2-9); NEUTROPHILS % (AUTO) 56 % (42-75); PLATELET COUNT 197 x10^3/uL (130-400); RED BLOOD COUNT 3.99 x10^6/uL (4.38-5.82); RED CELL DISTRIBUTION WIDTH 14.7 % (9.4-14.8)
[2020-07-26 23:44] LABS: ALANINE AMINOTRANSFERASE 28 U/L (12-78); ALBUMIN 2.7 g/dL (3.4-5.0); ANION GAP 6 mmol/L (5-15); CALCIUM 7.4 mg/dL (8.5-10.1); CHLORIDE 107 mmol/L (98-107); CREATININE 1.13 mg/dL (0.7-1.3); SALICYLATE LEVEL 1.9 mg/dL (2.8-20.0)
[2020-07-26 23:46] LABS: ALKALINE PHOSPHATASE 68 U/L (45-117); BILIRUBIN,TOTAL 0.2 mg/dL (0.2-1.0); TOTAL PROTEIN 6.2 g/dL (6.4-8.2)
--- NOTE | 2020-07-27 00:21 | NUR ---
PT. RESTING ON GURNEY WITH NO DISTRESS NOTED. CHART UP FOR RECHECK BY ERP. PT. IN SECURED ROOM WITH SITTER IN [place]NA.
--- NOTE | 2020-07-27 01:18 | NUR ---
PT. RESTING ON GURNEY WITH NO DISTRESS NOTED. T.V. ON. PT. TO HAVE A TELEPSYCH CONSULT. SITTER REMAINS IN [place]AFA[place]. ROOM SECURED.
--- NOTE | 2020-07-27 02:23 | NUR ---
REPORT RECIEVED FROM KELBY HEREDIA. PT RESTING IN [facility], RESP EVEN/UNLABORED. IN LINE OF SIGHT OF SE[facility]
--- NOTE | 2020-07-27 03:03 | NUR ---
PER ASSOCIATE DIRECTOR DATA & ANALYTICS TELEPSYCH CALLED BACK AND STATED IT WOULD BE A FEW MORE HOURS AT LEAST BEFORE TELEPSYCH EVAL CAN BE COMPLETED.
--- NOTE | 2020-07-27 03:33 | NUR ---
PT RESTING IN [facility], EMILIANO 0.112, NO OTHER NEEDS AT THIS TIME. IN LINE OF SIGHT OF SE[facility]
--- NOTE | 2020-07-27 05:38 | NUR ---
TELE PSYCH ON WITH PT AT THIS TIME
--- NOTE | 2020-07-27 06:00 | NUR ---
PT SLEEPING IN GURNEY, RESP EVEN/UNLABORED, IN LINE OF SIGHT OF [facility]
--- NOTE | 2020-07-27 06:08 | NUR ---
SPOKE WITH DR. GERBER ON THE PHONE. SHE IS RECOMMENDING A HOLD FOR THE PT. ERP AWARE
--- NOTE | 2020-07-27 06:37 | NUR ---
ADDIE ANTON TAKING A LOOK AT PT FOR ADMIT
--- NOTE | 2020-07-27 07:16 | NUR ---
report to cindy chua
== END 2020-07-26 23:30 | disposition home or self-care (01) ==
LOC: ED 23:19
DX: R45.851 Suicidal ideations (principal); F10.229 Alcohol dependence with intoxication, unspecified; F31.9 Bipolar disorder, unspecified; Y90.0 Blood alcohol level of less than 20 mg/100 ml
CPT/HCPCS: 36415; 80053; 80299; 80307; 80320; 80329; 85025; 87426; 99285; G0480

== ENCOUNTER 2020-07-27 10:03 | Inpatient (IN) | payer MEDICAID ==
[~2020-07-27] VITALS: Ht 180.3 cm; Wt 108.0 kg
[~2020-07-27 10:03] MED LIST changes: -QUET100T PO; +QUET100T2 PO
[2020-07-27] MEDS ORDERED: ACETAMINOPHEN 325 MG TABLET PO PRN (10:30)
[2020-07-27] MEDS ORDERED: DOCUSATE 100 MG CAPSULE PO PRN (10:30)
[2020-07-27] MEDS ORDERED: ONDANSETRON ODT 4 MG PO PRN (10:30)
[2020-07-27] MEDS ORDERED: POLYETHYLENE GLYCOL 17 GM PACKET PO PRN (10:30)
[2020-07-27 11:55] VITALS: BP 128/93
[2020-07-27 18:47] LABS: MICROSCOPIC NOT IND
[2020-07-27] MEDS ORDERED: LORazepam 1MG TABLET PO PRN (19:00)
[2020-07-27 19:39] VITALS: BP 149/77
[2020-07-27] MEDS: LORazepam 1MG TABLET PO SCH (20:10)
[2020-07-28] MEDS: LORazepam 1MG TABLET PO SCH ×4 (03:42→20:39)
[2020-07-28 07:15] LABS: CHOL/HDL RATIO 4.1; FREE T4 (FREE THYROXINE) 0.75 ng/dL (0.76-1.46); LDL/HDL RATIO 2.2 (0.5-3.0)
[2020-07-28 08:01] VITALS: BP 136/87
[2020-07-28] MEDS: NICOTINE 14MG/24 HR PATCH.TD24 TD SCH (08:32)
[2020-07-28 19:40] VITALS: BP 133/87
[2020-07-28] MEDS ORDERED: TRAZODONE 100MG TABLET ONE (21:45)
[2020-07-28] MEDS: TRAZODONE 100MG TABLET PO PRN (21:46)
[2020-07-29] MEDS: LORazepam 1MG TABLET PO SCH ×3 (03:00→19:50)
[2020-07-29 07:33] VITALS: BP 151/98
[2020-07-29] MEDS: NICOTINE 14MG/24 HR PATCH.TD24 TD SCH (08:36)
[2020-07-29] MEDS: ACAMPROSATE 333 MG TABLET.DR PO SCH ×2 (12:08→17:23)
[2020-07-29] MEDS: SERTRALINE 50MG TABLET PO SCH (12:08)
[2020-07-29 19:53] VITALS: BP 127/87
[2020-07-29] MEDS: TOPIRAMATE 25 MG TABLET PO SCH (20:28)
[2020-07-29] MEDS: TRAZODONE 100MG TABLET PO PRN (20:28)
[2020-07-30] MEDS: LORazepam 1MG TABLET PO SCH (03:00)
[2020-07-30 07:30] VITALS: BP 129/82
[2020-07-30] MEDS: SERTRALINE 50MG TABLET PO SCH (08:26)
[2020-07-30] MEDS: TOPIRAMATE 25 MG TABLET PO SCH ×2 (08:26→21:02)
[2020-07-30] MEDS: NICOTINE 14MG/24 HR PATCH.TD24 TD SCH (08:26)
[2020-07-30] MEDS: ACAMPROSATE 333 MG TABLET.DR PO SCH ×3 (08:26→16:09)
[2020-07-30 19:03] VITALS: BP 134/92
[2020-07-30] MEDS: TRAZODONE 100MG TABLET PO PRN (21:02)
[2020-07-31 07:33] VITALS: BP 103/67
[2020-07-31] MEDS: NICOTINE 14MG/24 HR PATCH.TD24 TD SCH (08:36)
[2020-07-31] MEDS: SERTRALINE 50MG TABLET PO SCH (08:36)
[2020-07-31] MEDS: TOPIRAMATE 25 MG TABLET PO SCH ×2 (08:36→20:29)
[2020-07-31] MEDS: ACAMPROSATE 333 MG TABLET.DR PO SCH ×3 (08:36→17:21)
[2020-07-31 19:40] VITALS: BP 120/83
[2020-07-31] MEDS: TRAZODONE 100MG TABLET PO PRN (20:29)
[2020-08-01 07:44] VITALS: BP 106/73
[2020-08-01] MEDS: TOPIRAMATE 25 MG TABLET PO SCH (08:08)
[2020-08-01] MEDS: NICOTINE 14MG/24 HR PATCH.TD24 TD SCH (08:08)
[2020-08-01] MEDS: SERTRALINE 50MG TABLET PO SCH (08:08)
[2020-08-01] MEDS: ACAMPROSATE 333 MG TABLET.DR PO SCH ×2 (08:08→12:21)
[2020-09-28] MEDS ORDERED: QUET100T2 PO (14:52)
== END 2020-08-01 14:50 | disposition home or self-care (01) | DRG 885 ==
LOC: 3E 10:25
PROVIDERS: ADMIT Psychiatry & Neurology Psychosomatic Medicine; ATTEND Psychiatry & Neurology Psychosomatic Medicine
DX: F31.30 Bipolar disorder, current episode depressed, mild or moderate severity, unspecified (principal); B19.20 Unspecified viral hepatitis C without hepatic coma; F10.239 Alcohol dependence with withdrawal, unspecified; R45.851 Suicidal ideations; G47.00 Insomnia, unspecified; Z79.899 Other long term (current) drug therapy; Z86.14 Personal history of Methicillin resistant Staphylococcus aureus infection; Y90.9 Presence of alcohol in blood, level not specified; F17.210 Nicotine dependence, cigarettes, uncomplicated; F12.10 Cannabis abuse, uncomplicated; F11.10 Opioid abuse, uncomplicated; F15.10 Other stimulant abuse, uncomplicated; Z71.6 Tobacco abuse counseling
CPT/HCPCS: 36415; 71045; 80053; 80061; 80299; 80307; 80320; 80329; 81003; 84439; 84443; 85025; 87426; 93005; 99285; G0480

== ENCOUNTER 2020-08-20 10:58 | Inpatient (IN) | payer MEDICAID ==
[~2020-08-20] VITALS: Ht 180.3 cm; Wt 104.2 kg
[~2020-08-20 10:58] MED LIST changes: +QUET100T PO; -QUET100T2 PO
[2020-08-20] MEDS ORDERED: ONDANSETRON ODT 4 MG PO PRN (12:00)
[2020-08-20] MEDS ORDERED: DOCUSATE 100 MG CAPSULE PO PRN (12:00)
[2020-08-20] MEDS ORDERED: POLYETHYLENE GLYCOL 17 GM PACKET PO PRN (12:00)
[2020-08-20] MEDS ORDERED: BISACODYL 10 MG SUPP PR PRN (12:00)
[2020-08-20] MEDS ORDERED: ACETAMINOPHEN 325 MG TABLET PO PRN (12:00)
[2020-08-20 14:11] VITALS: BP 148/94
[2020-08-20] MEDS ORDERED: PLEASE ENTER HEIGHT AND WEIGHT MC SCH (14:30)
[2020-08-20] MEDS: ACAMPROSATE 333 MG TABLET.DR PO SCH ×2 (16:30→20:28)
[2020-08-20] MEDS: LORazepam 1MG TABLET PO SCH (16:31)
[2020-08-20 17:02] LABS: MICROSCOPIC NOT IND
[2020-08-20 18:51] VITALS: BP 127/83
[2020-08-20 20:29] LABS: AMPHETAMINE SCREEN, URINE Positive (Negative); BARBITURATE SCREEN, URINE Negative (Negative); BENZODIAZEPINE SCREEN, URINE Positive (Negative); CANNABINOID SCREEN, URINE Negative (Negative); COCAINE SCREEN, URINE Negative (Negative); METHADONE SCREEN, URINE Negative (Negative); OPIATE SCREEN, URINE Negative (Negative)
[2020-08-21 07:10] LABS: ALBUMIN 2.6 g/dL (3.4-5.0); ANION GAP 5 mmol/L (5-15); CALCIUM 7.7 mg/dL (8.5-10.1); CHLORIDE 106 mmol/L (98-107)
[2020-08-21 07:15] LABS: ALANINE AMINOTRANSFERASE 27 U/L (12-78); ALKALINE PHOSPHATASE 104 U/L (45-117); BILIRUBIN,TOTAL 0.7 mg/dL (0.2-1.0); TOTAL PROTEIN 6.1 g/dL (6.4-8.2)
[2020-08-21 07:24] VITALS: BP 129/82
[2020-08-21] MEDS ORDERED: POTASSIUM CHLORIDE 20 MEQ TAB.ER.PRT PO ONE (08:00)
[2020-08-21] MEDS: LORazepam 1MG TABLET PO SCH ×3 (08:24→14:57)
[2020-08-21] MEDS: ACAMPROSATE 333 MG TABLET.DR PO SCH ×3 (08:25→21:16)
[2020-08-21] MEDS: FOLIC ACID 1 MG TABLET PO SCH (08:25)
[2020-08-21] MEDS: THIAMINE 100MG TABLET PO SCH (08:26)
[2020-08-21] MEDS: NICOTINE 14MG/24 HR PATCH.TD24 TD SCH (08:30)
[2020-08-21 14:51] VITALS: BP 144/101
[2020-08-21] MEDS ORDERED: MAGNESIUM SULFATE PMX 4GM/100M 100 ML IVPB ONE (15:00)
[2020-08-21 16:44] VITALS: BP 139/98
[2020-08-21 17:41] VITALS: BP 128/85
[2020-08-21 18:38] VITALS: BP 129/86
[2020-08-21 19:27] VITALS: BP 123/78
[2020-08-22] MEDS: LORazepam 1MG TABLET PO SCH ×3 (00:36→16:53)
[2020-08-22 05:43] LABS: ANION GAP 3 mmol/L (5-15); CALCIUM 7.7 mg/dL (8.5-10.1); CHLORIDE 106 mmol/L (98-107)
[2020-08-22 05:46] LABS: CREATININE 0.57 mg/dL (0.7-1.3)
[2020-08-22 07:33] VITALS: BP 135/95
[2020-08-22] MEDS: THIAMINE 100MG TABLET PO SCH (08:52)
[2020-08-22] MEDS: ACAMPROSATE 333 MG TABLET.DR PO SCH ×3 (08:52→21:09)
[2020-08-22] MEDS: FOLIC ACID 1 MG TABLET PO SCH (08:52)
[2020-08-22] MEDS: NICOTINE 14MG/24 HR PATCH.TD24 TD SCH (08:58)
[2020-08-22] MEDS: LORazepam 1MG TABLET PO PRN (11:22)
[2020-08-22 19:24] VITALS: BP 135/85
[2020-08-23] MEDS: LORazepam 1MG TABLET PO SCH ×3 (00:33→16:38)
[2020-08-23 07:41] VITALS: BP 125/78
[2020-08-23] MEDS: THIAMINE 100MG TABLET PO SCH (08:34)
[2020-08-23] MEDS: ACAMPROSATE 333 MG TABLET.DR PO SCH ×3 (08:34→20:43)
[2020-08-23] MEDS: FOLIC ACID 1 MG TABLET PO SCH (08:34)
[2020-08-23] MEDS: NICOTINE 14MG/24 HR PATCH.TD24 TD SCH ×2 (09:00→17:16)
[2020-08-23 18:19] VITALS: BP 147/83
[2020-08-23] MEDS ORDERED: COVID-19 VAC,AD26(JANSSEN)/PF 0.5ML IM-VACC ONE ×2 (20:00→20:30)
[2020-08-23] MEDS: LORazepam 1MG TABLET PO PRN (20:44)
[2020-08-24] MEDS: LORazepam 1MG TABLET PO SCH ×3 (00:48→16:36)
[2020-08-24 07:46] VITALS: BP 133/92
[2020-08-24] MEDS: ACAMPROSATE 333 MG TABLET.DR PO SCH ×3 (09:15→20:57)
[2020-08-24] MEDS: THIAMINE 100MG TABLET PO SCH (09:16)
[2020-08-24] MEDS: FOLIC ACID 1 MG TABLET PO SCH (09:16)
[2020-08-24] MEDS: NICOTINE 14MG/24 HR PATCH.TD24 TD SCH (16:37)
[2020-08-24 19:48] VITALS: BP 132/86
[2020-08-24] MEDS ORDERED: TRAZODONE 150MG TABLET PO PRN (22:30)
[2020-08-25 07:28] VITALS: BP 118/75
[2020-08-25] MEDS: LORazepam 1MG TABLET PO SCH ×2 (08:00)
[2020-08-25] MEDS: FOLIC ACID 1 MG TABLET PO SCH (09:00)
[2020-08-25] MEDS: ACAMPROSATE 333 MG TABLET.DR PO SCH (09:00)
[2020-08-25] MEDS: THIAMINE 100MG TABLET PO SCH (09:00)
[2020-08-25] MEDS ORDERED: NICO-486 TD (13:10)
[2020-08-25] MEDS ORDERED: ACAM333T7 PO (13:10)
[2020-08-25] MEDS ORDERED: TRAZ150T62 PO (13:10)
== END 2020-08-25 13:55 | disposition home or self-care (01) | DRG 885 ==
LOC: 3E 14:03
PROVIDERS: ADMIT Psychiatry & Neurology Psychosomatic Medicine; ATTEND Psychiatry & Neurology Psychosomatic Medicine
DX: F31.30 Bipolar disorder, current episode depressed, mild or moderate severity, unspecified (principal); B19.20 Unspecified viral hepatitis C without hepatic coma; R45.851 Suicidal ideations; F10.239 Alcohol dependence with withdrawal, unspecified; F17.210 Nicotine dependence, cigarettes, uncomplicated; Z86.14 Personal history of Methicillin resistant Staphylococcus aureus infection; Z79.899 Other long term (current) drug therapy; Z59.0 Homelessness; Z56.0 Unemployment, unspecified
CPT/HCPCS: 36415; 80048; 80053; 80307; 81003; 83735; 91303; 93005; J3475

== ENCOUNTER 2020-09-06 00:11 | Emergency (ER) | payer MEDICAID ==
[~2020-09-06] VITALS: Ht 180.3 cm; Wt 102.4 kg
[~2020-09-06 00:11] MED LIST changes: +TRAZ150T62 PO
[2020-09-06 00:14] VITALS: BP 132/85
[2020-09-06 00:41] LABS: BASOPHILS % (AUTO) 1 % (0-1); EOSINOPHILS % (AUTO) 2 % (1-7); LYMPHOCYTES % (AUTO) 43 % (22-44); MEAN CORPUSCULAR HEMOGLOBIN 35.3 pg (27.5-34.5); MEAN CORPUSCULAR HGB CONC 34.7 g/dL (33.2-36.2); MEAN PLATELET VOLUME 10.2 fL (7.4-10.4); MONOCYTES % (AUTO) 14 % (2-9); NEUTROPHILS % (AUTO) 40 % (42-75); PLATELET COUNT 240 x10^3/uL (130-400); RED BLOOD COUNT 4.39 x10^6/uL (4.38-5.82); RED CELL DISTRIBUTION WIDTH 14.2 % (9.4-14.8)
[2020-09-06 00:51] LABS: ALANINE AMINOTRANSFERASE 35 U/L (12-78); ALBUMIN 3.5 g/dL (3.4-5.0); ANION GAP 8 mmol/L (5-15); CALCIUM 7.6 mg/dL (8.5-10.1); CHLORIDE 104 mmol/L (98-107); CREATININE 0.95 mg/dL (0.7-1.3); SALICYLATE LEVEL < 1.7 mg/dL (2.8-20.0)
[2020-09-06 01:02] LABS: ALKALINE PHOSPHATASE 92 U/L (45-117); BILIRUBIN,TOTAL 0.5 mg/dL (0.2-1.0); TOTAL PROTEIN 7.9 g/dL (6.4-8.2)
--- NOTE | 2020-09-06 01:36 | NUR ---
pt ambulated to bathroom w/ steady gait and provided urine sample. Requesting PO, denies further needs, sitter at bedside.
[2020-09-06] MEDS ORDERED: THIAMINE 100MG TABLET PO ONE (02:00)
--- NOTE | 2020-09-06 02:00 | NUR ---
Pt resting comfortably at this time. Denies needs. Sitter at bedside, in clear line of sight of patient.
--- NOTE | 2020-09-06 02:30 | NUR ---
Pt alert and oriented x4, stable, vitals WNL upon arrival calm and compliant with initial crate opener. Pt endorses recent stressors of losing job, home and going through divorce. Pt currently living in and out of motels. States he is not homeless. Pt endorses active thoughts of SI with a plan to overdose on Heroin. Pt states he abuses heroin every now and then, but mostly abuses methamphetamines and alcohol on a daily basis. Pt endorses a hx of withdrawl seizures and DT's. Pt states last drug and alcohol use was 2pm yesterday. Pt states he has a prior hx of SI attempts including attempts at overdosing on pills. Pt denies HI. Denies any auditory or visual hallucinations. Denies any remarkable PMH or Psych hx. Denies any surgical hx. Pt is not vaccinated and smokes cigarettes regularly.
[2020-09-06 02:40] LABS: AMPHETAMINE SCREEN, URINE Positive (Negative); BARBITURATE SCREEN, URINE Negative (Negative); BENZODIAZEPINE SCREEN, URINE Positive (Negative); CANNABINOID SCREEN, URINE Positive (Negative); COCAINE SCREEN, URINE Negative (Negative); METHADONE SCREEN, URINE Negative (Negative); OPIATE SCREEN, URINE Negative (Negative)
--- NOTE | 2020-09-06 02:44 | NUR ---
Pt provided with sandwich and water. CIWA of 10 assessed.
--- NOTE | 2020-09-06 02:49 | NUR ---
Updated PA Long on pts CIWA score of 10.
[2020-09-06] MEDS ORDERED: LORazepam 1MG TABLET PO ONE (03:00)
--- NOTE | 2020-09-06 03:00 | NUR ---
Pt resting comfortably at this time. Denies needs. Sitter at bedside, in clear line of sight of patient.
--- NOTE | 2020-09-06 03:54 | NUR ---
COIVID swab walked to lab at this time
--- NOTE | 2020-09-06 04:00 | NUR ---
Pt resting comfortably at this time. Denies needs. Sitter at bedside, in clear line of sight of patient.
[2020-09-06] MEDS ORDERED: THIAMINE 100MG TABLET ONE (04:18)
[2020-09-06] MEDS ORDERED: LORazepam 1MG TABLET ONE (04:18)
--- NOTE | 2020-09-06 05:00 | NUR ---
Pt resting comfortably at this time. Denies needs. Sitter at bedside, in clear line of sight of patient.
--- NOTE | 2020-09-06 06:00 | NUR ---
Pt resting comfortably at this time. Denies needs. Sitter at bedside, in clear line of sight of patient.
--- NOTE | 2020-09-06 06:36 | NUR ---
Telepsychiatrist speaking with pt at this time.
--- NOTE | 2020-09-06 06:51 | NUR ---
Report given to KELBY Gillette
== END 2020-09-06 08:24 | disposition home or self-care (01) ==
LOC: ED 00:45 → UNDOADMOB 04:55 → EDIP 04:55 → ED 08:24
DX: R45.851 Suicidal ideations (principal); F32.1 Major depressive disorder, single episode, moderate; F15.10 Other stimulant abuse, uncomplicated; F12.10 Cannabis abuse, uncomplicated; F10.10 Alcohol abuse, uncomplicated; F17.210 Nicotine dependence, cigarettes, uncomplicated; Z20.822 Contact with and (suspected) exposure to COVID-19; Z72.9 Problem related to lifestyle, unspecified; Y90.0 Blood alcohol level of less than 20 mg/100 ml
CPT/HCPCS: 36415; 80053; 80299; 80307; 80320; 80329; 84443; 85025; 87426; 99406; G0480

== ENCOUNTER 2020-09-19 13:46 | Emergency (ER) | payer MEDICAID ==
[~2020-09-19] VITALS: Ht 180.3 cm; Wt 105.7 kg
[2020-09-19 14:25] LABS: BASOPHILS % (AUTO) 1 % (0-1); EOSINOPHILS % (AUTO) 3 % (1-7); LYMPHOCYTES % (AUTO) 23 % (22-44); MEAN CORPUSCULAR HEMOGLOBIN 34.2 pg (27.5-34.5); MEAN CORPUSCULAR HGB CONC 33.6 g/dL (33.2-36.2); MEAN PLATELET VOLUME 10.5 fL (7.4-10.4); MONOCYTES % (AUTO) 11 % (2-9); NEUTROPHILS % (AUTO) 62 % (42-75); PLATELET COUNT 199 x10^3/uL (130-400); RED BLOOD COUNT 4.73 x10^6/uL (4.38-5.82); RED CELL DISTRIBUTION WIDTH 15.1 % (9.4-14.8)
--- NOTE | 2020-09-19 14:31 | NUR ---
ASSUMED CARE OF PATIENT. PATIENT REPORTS HE IS FEELING SI AND WANTS TO JUMP OFF A [place] ROOF TOP. PT REPORTS HE IS FEELING LONELY AND HIS FAMILY WANTS NOTHING TO DO WITH HIM. ROOM SECURE. VS STABLE. SITTER OUTSIDE DOOR. BELONGINGS LIST DONE. PT HAS TWO BAGS IN CLOSET. PT REPORTS HE IS NOT TAKING ANY MEDICATIONS. PT GIVEN WATER. WILL CONTINUE TO MONITOR.
[2020-09-19 14:38] LABS: ALANINE AMINOTRANSFERASE 27 U/L (12-78); ALBUMIN 2.8 g/dL (3.4-5.0); ANION GAP 8 mmol/L (5-15); CHLORIDE 105 mmol/L (98-107); SALICYLATE LEVEL < 1.7 mg/dL (2.8-20.0)
[2020-09-19 14:40] LABS: ALKALINE PHOSPHATASE 90 U/L (45-117); BILIRUBIN,TOTAL 0.8 mg/dL (0.2-1.0); CREATININE 0.76 mg/dL (0.7-1.3); TOTAL PROTEIN 7.1 g/dL (6.4-8.2)
[2020-09-19 15:01] LABS: <PLATELET ESTIMATE> ADEQUATE; LARGE PLATELETS 1+
--- NOTE | 2020-09-19 15:36 | NUR ---
PT RESTING IN ROOM. VS STABLE. CALL LIGHT IN PLACE. WILL CONTINUE TO MONITOR.
--- NOTE | 2020-09-19 15:38 | NUR ---
SITTER AT DOOR. WILL CONTINUE TO MONITOR.
--- NOTE | 2020-09-19 15:50 | NUR ---
CESAR, DADO OPERATOR IN ROOM
[2020-09-19] MEDS ORDERED: TRAZODONE 50MG TABLET PO PRN (16:30)
--- NOTE | 2020-09-19 16:31 | NUR ---
UA SENT. PT IS ON LEGAL HOLD. SITTER AT DOOR. NO ACUTE DISTRESS. WILL CONTINUE TO MONITOR.
[2020-09-19 16:48] LABS: AMPHETAMINE SCREEN, URINE Negative (Negative); BARBITURATE SCREEN, URINE Negative (Negative); BENZODIAZEPINE SCREEN, URINE Negative (Negative); CANNABINOID SCREEN, URINE Negative (Negative); COCAINE SCREEN, URINE Negative (Negative); METHADONE SCREEN, URINE Negative (Negative); OPIATE SCREEN, URINE Negative (Negative)
--- NOTE | 2020-09-19 17:10 | NUR ---
PT RESTING IN ROOM. NO ACUTE DISTRESS NOTED. SITTER AT DOOR. LEILA CONTINUE TO MONITOR.
--- NOTE | 2020-09-19 17:58 | NUR ---
REPORT GIVEN TO KELBY LEWIS FOR BREAK
--- NOTE | 2020-09-19 18:59 | NUR ---
MEAL TRAY PROVIDED TO PT
--- NOTE | 2020-09-19 20:03 | NUR ---
PT SLEEPING. NADN AT THIS TIME. SUICIDE PERCAUTIONS MAINTAINED. GARAGE DOORS DOWN AND LOCKED. SITTER AT BEDSIDE.
--- NOTE | 2020-09-19 20:40 | NUR ---
PT GIVEN ADMISSION BED.
[2020-09-19] MEDS ORDERED: QUETIAPINE 100MG TABLET PO SCH (21:00)
--- NOTE | 2020-09-19 22:08 | NUR ---
PT SLEEPING. NADN. SUICIDE PERCAUTIONS MAINTAINED. SITTER AT BEDSIDE.
--- NOTE | 2020-09-19 23:57 | NUR ---
PT SLEEPING. NADN. SUICIDE PERCAUTIONS MAINTAINED. SITTER AT BEDSIDE.
--- NOTE | 2020-09-20 00:48 | NUR ---
PT SLEEPING. NADN. SUICIDE PERCAUTIONS MAINTAINED. SITTER AT BEDSIDE
--- NOTE | 2020-09-20 01:21 | NUR ---
FIRST CONTACT WITH PATIENT. PATIENT LYING IN BED WITH EYES CLOSED. NAD. 1:[address] FOR SAFETY. WILL CONTINUE TO MONITOR.
--- NOTE | 2020-09-20 01:31 | NUR ---
PATIENT PROVIDED WITH ICE WATER REQUESTED.
--- NOTE | 2020-09-20 01:39 | NUR ---
[facility] ([facility]) CALLED AND SAID THAT UNTIL FURTHER NOTICE THEY ARE NOT TAKING ANY NEW PTS
--- NOTE | 2020-09-20 01:40 | NUR ---
BREAK RN: PT RESTING IN ROOM. SITTER AT DOOR. WILL CONTINUE TO MOINTOR.
--- NOTE | 2020-09-20 01:47 | NUR ---
FAXED PACKET TO [facility]
--- NOTE | 2020-09-20 02:04 | NUR ---
BREAK RN: REPORT GIVEN TO KELBY KATE
--- NOTE | 2020-09-20 02:21 | NUR ---
[facility] (WOLF) PT WOULD BE SELF PAY
--- NOTE | 2020-09-20 03:41 | NUR ---
PATIENT RESTING WITH EYES CLOSED. NAD. 1:[address] FOR PATIENT SAFETY. SI PRECAUTIONS MAINTAINED. WILL CONTINUE TO MONITOR.
--- NOTE | 2020-09-20 06:04 | NUR ---
PATIENT RESTING WITH EYES CLOSED. NAD. 1:[address] SI PRECAUTIONS REMAIN IN PLACE. WILL CONTINUE TO MONITOR.
--- NOTE | 2020-09-20 06:53 | NUR ---
REPORT GIVEN TO KELBY WAGGONER
--- NOTE | 2020-09-20 06:54 | NUR ---
I AM ASSUMING CARE OF THIS PT FROM [place] (KELBY). SBAR WAS EXCHANGED AT THE BEDSIDE.
--- NOTE | 2020-09-20 07:40 | NUR ---
ICE WATER PROVIDED PER PT REQUEST. HE AMBULATED TO THE RESTROOM WITH A STEADY GAIT. REFUSING ANY BREAKFAST, AND IS RESTING ON A HOSPITAL BED NOW. THERE HAVE BEEN NO ACUTE CHANGES IN HIS CONDITION SINCE MY ARRIVAL HERE TODAY. I WILL CONTINUE TO MONITOR AND TREAT OPRDERED, WELL PRN WHILE AWAITING DISPO FOR PSYCHIATRIC CARE.
[2020-09-20 08:18] VITALS: BP 114/73
--- NOTE | 2020-09-20 11:22 | NUR ---
psych marketing graphics specialist is at the bedside for consult. anticipating d/c
== END 2020-09-20 13:05 | disposition home or self-care (01) ==
LOC: ED 14:38 → UNDOADMOB 16:52 → OBSVTOIN 16:52 → INTOOBSV 16:52 → EDIP 16:52
DX: R45.851 Suicidal ideations (principal); F17.210 Nicotine dependence, cigarettes, uncomplicated
CPT/HCPCS: 36415; 80053; 80299; 80307; 80320; 80329; 85025; 99285; G0480

== ENCOUNTER 2020-09-24 12:04 | Inpatient (IN) | payer MEDICAID ==
[~2020-09-24] VITALS: Ht 180.3 cm; Wt 96.6 kg
[2020-09-24] MEDS ORDERED: LORazepam 1MG TABLET ONE (12:18)
[2020-09-24] MEDS ORDERED: DOCUSATE 100 MG CAPSULE PO PRN (12:30)
[2020-09-24] MEDS ORDERED: POLYETHYLENE GLYCOL 17 GM PACKET PO PRN (12:30)
[2020-09-24] MEDS ORDERED: PLEASE ENTER HEIGHT AND WEIGHT MC SCH (12:30)
[2020-09-24] MEDS ORDERED: ONDANSETRON ODT 4 MG PO PRN (12:30)
[2020-09-24] MEDS ORDERED: BISACODYL 10 MG SUPP PR PRN (12:30)
[2020-09-24] MEDS: LORazepam 1MG TABLET PO SCH ×3 (12:37→20:19)
[2020-09-24] MEDS: LORazepam 1MG TABLET PO PRN ×2 (12:37→14:49)
[2020-09-24 13:00] VITALS: BP 159/107
[2020-09-24] MEDS ORDERED: POTASSIUM CHLORIDE 20 MEQ TAB.ER.PRT PO ONE (14:00)
[2020-09-24] MEDS ORDERED: TRAZODONE 100MG TABLET PO PRN (19:00)
[2020-09-24 19:45] VITALS: BP 137/96
[2020-09-24] MEDS: ACAMPROSATE 333 MG TABLET.DR PO SCH (20:19)
[2020-09-24 20:23] VITALS: BP 130/85
[2020-09-25] VITALS: BP 133/87
[2020-09-25] MEDS: LORazepam 1MG TABLET PO SCH ×6 (00:18→20:20)
[2020-09-25 01:07] LABS: MICROSCOPIC NOT IND
[2020-09-25 04:31] VITALS: BP 119/77
[2020-09-25 06:48] LABS: BASOPHILS % (AUTO) 1 % (0-1); EOSINOPHILS % (AUTO) 6 % (1-7); LYMPHOCYTES % (AUTO) 36 % (22-44); MEAN CORPUSCULAR HEMOGLOBIN 33.4 pg (27.5-34.5); MEAN CORPUSCULAR HGB CONC 32.6 g/dL (33.2-36.2); MEAN PLATELET VOLUME 9.9 fL (7.4-10.4); MONOCYTES % (AUTO) 11 % (2-9); NEUTROPHILS % (AUTO) 47 % (42-75); PLATELET COUNT 187 x10^3/uL (130-400); RED BLOOD COUNT 4.75 x10^6/uL (4.38-5.82); RED CELL DISTRIBUTION WIDTH 15.3 % (9.4-14.8)
[2020-09-25 06:57] LABS: ALBUMIN 2.5 g/dL (3.4-5.0); ANION GAP 5 mmol/L (5-15); CALCIUM 8.3 mg/dL (8.5-10.1); CHLORIDE 106 mmol/L (98-107)
[2020-09-25 07:01] LABS: ALANINE AMINOTRANSFERASE 41 U/L (12-78); ALKALINE PHOSPHATASE 66 U/L (45-117); BILIRUBIN,TOTAL 0.3 mg/dL (0.2-1.0); CREATININE 0.68 mg/dL (0.7-1.3); TOTAL PROTEIN 6.4 g/dL (6.4-8.2)
[2020-09-25 07:21] VITALS: BP 135/85
[2020-09-25] MEDS: FOLIC ACID 1 MG TABLET PO SCH (08:52)
[2020-09-25] MEDS: THIAMINE 100MG TABLET PO SCH (08:52)
[2020-09-25] MEDS: ACAMPROSATE 333 MG TABLET.DR PO SCH ×3 (08:52→20:20)
[2020-09-25] MEDS: NICOTINE 21 MG/24 HR PATCH.TD24 TD SCH (08:53)
[2020-09-25 19:01] VITALS: BP 134/90
[2020-09-25] MEDS: ACETAMINOPHEN 325 MG TABLET PO PRN (20:20)
[2020-09-26] MEDS: LORazepam 1MG TABLET PO SCH ×6 (04:20→20:47)
[2020-09-26 07:33] VITALS: BP 140/85
[2020-09-26] MEDS: NICOTINE 21 MG/24 HR PATCH.TD24 TD SCH (08:41)
[2020-09-26] MEDS: ACAMPROSATE 333 MG TABLET.DR PO SCH ×3 (08:41→20:43)
[2020-09-26] MEDS: THIAMINE 100MG TABLET PO SCH (08:42)
[2020-09-26] MEDS: FOLIC ACID 1 MG TABLET PO SCH (08:42)
[2020-09-26 19:11] VITALS: BP 138/88
[2020-09-26] MEDS: QUETIAPINE 100MG TABLET PO SCH (20:44)
[2020-09-26] MEDS: ACETAMINOPHEN 325 MG TABLET PO PRN (20:44)
[2020-09-27] MEDS: LORazepam 1MG TABLET PO SCH ×3 (00:13→08:19)
[2020-09-27 07:28] VITALS: BP 106/70
[2020-09-27] MEDS: THIAMINE 100MG TABLET PO SCH (08:19)
[2020-09-27] MEDS: NICOTINE 21 MG/24 HR PATCH.TD24 TD SCH (08:19)
[2020-09-27] MEDS: ACAMPROSATE 333 MG TABLET.DR PO SCH ×3 (08:19→20:05)
[2020-09-27] MEDS: FOLIC ACID 1 MG TABLET PO SCH (08:19)
[2020-09-27] MEDS ORDERED: LORazepam 1MG TABLET PO PRN (13:30)
[2020-09-27 19:27] VITALS: BP 123/87
[2020-09-27] MEDS: ACETAMINOPHEN 325 MG TABLET PO PRN (20:06)
[2020-09-27] MEDS: QUETIAPINE 100MG TABLET PO SCH (20:06)
[2020-09-28 07:21] VITALS: BP 101/70
[2020-09-28] MEDS: THIAMINE 100MG TABLET PO SCH (09:44)
[2020-09-28] MEDS: FOLIC ACID 1 MG TABLET PO SCH (09:44)
[2020-09-28] MEDS: ACAMPROSATE 333 MG TABLET.DR PO SCH ×3 (09:45→20:28)
[2020-09-28] MEDS: NICOTINE 21 MG/24 HR PATCH.TD24 TD SCH (09:45)
[2020-09-28] MEDS ORDERED: QUET100T PO (14:52)
[2020-09-28] MEDS ORDERED: TRAZ-175 PO (14:52)
[2020-09-28] MEDS ORDERED: ACAM333T7 PO (14:52)
[2020-09-28] MEDS ORDERED: NICO-587 TD (14:52)
[2020-09-28 19:08] VITALS: BP 111/80
[2020-09-28] MEDS: QUETIAPINE 100MG TABLET PO SCH (20:28)
[2020-09-28] MEDS: ACETAMINOPHEN 325 MG TABLET PO PRN (20:31)
[2020-09-29 07:49] VITALS: BP 116/70
[2020-09-29] MEDS: ACAMPROSATE 333 MG TABLET.DR PO SCH (09:47)
[2020-09-29] MEDS: THIAMINE 100MG TABLET PO SCH (09:47)
[2020-09-29] MEDS: NICOTINE 21 MG/24 HR PATCH.TD24 TD SCH (09:47)
[2020-09-29] MEDS: FOLIC ACID 1 MG TABLET PO SCH (09:47)
== END 2020-09-29 14:10 | disposition home or self-care (01) | DRG 885 ==
LOC: 3E 12:04
PROVIDERS: ADMIT Psychiatry & Neurology Psychosomatic Medicine; ATTEND Psychiatry & Neurology Psychosomatic Medicine
DX: F31.9 Bipolar disorder, unspecified (principal); B19.20 Unspecified viral hepatitis C without hepatic coma; R45.851 Suicidal ideations; F10.239 Alcohol dependence with withdrawal, unspecified; G47.00 Insomnia, unspecified; F17.210 Nicotine dependence, cigarettes, uncomplicated; E87.6 Hypokalemia; Y90.1 Blood alcohol level of 20-39 mg/100 ml; Z59.0 Homelessness; Z79.899 Other long term (current) drug therapy
CPT/HCPCS: 36415; 80053; 81003; 83735; 85025; 87635; 93005; Q0162

== ENCOUNTER 2020-10-24 20:52 | Emergency (ER) | payer MEDICAID ==
[~2020-10-24] VITALS: Ht 180.3 cm; Wt 106.2 kg
[~2020-10-24 20:52] MED LIST changes: -QUET100T PO; +QUET100T2 PO; +TRAZ-175 PO
[2020-10-24 20:56] VITALS: BP 107/69
[2020-10-24 21:20] LABS: MEAN CORPUSCULAR HEMOGLOBIN 33.1 pg (27.5-34.5); MEAN CORPUSCULAR HGB CONC 33.7 g/dL (33.2-36.2); MEAN PLATELET VOLUME 9.8 fL (7.4-10.4); PLATELET COUNT 186 x10^3/uL (130-400); RED BLOOD COUNT 4.44 x10^6/uL (4.38-5.82); RED CELL DISTRIBUTION WIDTH 15.6 % (9.4-14.8)
[2020-10-24 21:32] LABS: ALANINE AMINOTRANSFERASE 21 U/L (12-78); ALBUMIN 3.2 g/dL (3.4-5.0); ANION GAP 7 mmol/L (5-15); CALCIUM 7.8 mg/dL (8.5-10.1); CHLORIDE 110 mmol/L (98-107); CREATININE 0.63 mg/dL (0.7-1.3)
[2020-10-24 21:34] LABS: ALKALINE PHOSPHATASE 90 U/L (45-117); BILIRUBIN,TOTAL 0.2 mg/dL (0.2-1.0); SALICYLATE LEVEL 3.6 mg/dL (2.8-20.0); TOTAL PROTEIN 7.6 g/dL (6.4-8.2)
[2020-10-24 21:58] LABS: ANISOCYTOSIS 1+; BAND#(MANUAL) 0.07 x10^3/uL; BANDS%(MANUAL) 1 % (0-7); BASOS#(MANUAL) 0.07 x10^3/uL (0-0.1); BASOS% (MANUAL) 1 % (0-1); LYMPH#(MANUAL) 2.95 x10^3/uL (1-3.4); LYMPHS% (MANUAL) 44 % (22-44); MONOS#(MANUAL) 0.34 x10^3/uL (0.3-2.7); MONOS% (MANUAL) 5 % (2-9); REACTIVE LYMPHS # (MANUAL) 0.34 x10^3/uL (0-0); REACTIVE LYMPHS % (MANUAL) 5 % (0-0); SEG#(MANUAL) 2.95 x10^3/uL (1.8-6.8); SEGS% (MANUAL) 44 % (42-75)
[2020-10-24 21:59] LABS: <PLATELET ESTIMATE> ADEQUATE; LARGE PLATELETS 1+
--- NOTE | 2020-10-24 22:19 | NUR ---
attempt to move pt from wall to room 1, pt got upset and left in ambulance bay.
== END 2020-10-24 22:20 | disposition left against medical advice (07) ==
LOC: ED 21:47
DX: R45.851 Suicidal ideations (principal); F10.10 Alcohol abuse, uncomplicated; F15.10 Other stimulant abuse, uncomplicated; F17.200 Nicotine dependence, unspecified, uncomplicated
CPT/HCPCS: 36415; 80053; 80299; 80320; 80329; 85025; 99283; G0480